=== PATIENT | male | born 1960 | race Caucasian/White ===

== ENCOUNTER 2016-12-24 22:31 | Emergency (ER) | payer OTHER, SELFPAY ==
[2016-12-24 22:55] LABS: BASOPHIL % 0.3 % (0.0-0.4); Eosinophil % 0.9 % (0.00-5.0); Granulocytes % 68.2 % (36.0-66.0); Lymphocytes % 25.2 % (24.0-44.0); Mean Cell Volume 93.6 fl (78-100); Mean Corpuscular Hemoglobin 31.3 pg (26-32); Mean Platelet Volume 10.4 fl (6-9.5); Monocytes % 5.4 % (0.0-12.0); Platelet Count 235 K/mm3 (150-450); Red Blood Count 4.85 M/mm3 (4.1-5.6); Red Cell Distribution Width 13.5 % (11.5-14.0)
--- NOTE | 2016-12-24 23:07 | ERPHSYRPT ---
- History of Present Illness Time Seen by Provider: 12/24/16 22:47 Source: patient Exam Limitations: no limitations Patient Subjective Stated Complaint: Pt sts approx 45 min ago onset lt sided chest pain radiating into lt arm with lt arm and lt facial numbness. Describes as annoying. Sts pain 3-4/10. Pt sts also feels short of breath. Denies cardiac hx, is a smoker. Sts pain worse with deep breathing lt side. Triage Nursing Assessment: Pt alert, oriented, answers all questions appropriately. Skin p/w/d, resps non-labored SPo2 97% room air. Lung sounds diminished left lower lobe. Otherwise clear. Bowel sounds present all quadrants. Physician History: ABOUT 45 MINUTES AGO PT STARTED WITH SHORTNESS OF AIR, LEFT ANTERIOR CHEST PAIN , DIZZINESS, DRAWING OF THE MOUTH TO THE LEFT AND NUMBNESS OF THE LEFT SIDE OF THE FACE AND LEFT FINGERS. Allergies/Adverse Reactions: No Known Drug Allergies Allergy (Unverified 12/24/16 22:39) Home Medications: Hydrocodone Bit/Acetaminophen [[place] 10-325 Tablet] 1 each PO Q4H 12/24/16 [ History] Hx Tetanus, Diphtheria Vaccination/Date Given: No Hx Influenza Vaccination/Date Given: Yes Hx Pneumococcal Vaccination/Date Given: No Immunizations Up to Date: No - Review of Systems Respiratory: Dyspnea Cardiac: Chest Pain Neurological: Dizziness, Sensory Changes (NUMBNESS OF THE LEFT FINGERS AND LEFT SIDE OF THE FACE), Other (DRAWING OF THE LEFT SIDE OF THE MOUTH) All Other Systems: Reviewed and Negative - Past Medical History Pertinent Past Medical History: Yes Other Medical History: CHRONIC PAIN HIP - LEFT HIP AND ANKLES - Past Surgical History Past Surgical History: Yes Gastrointestinal: Hernia Repair - Social History Smoking Status: Current every day smoker How long have you smoked: 30 years Exposure to second hand smoke: No Drug Use: none Patient Lives Alone: No - Nursing Vital Signs Nursing Vital Signs: Initial Vital Signs Temperature 97.7 F Temperature Source Oral Pulse Rate 65 Respiratory Rate 18 Blood Pressure [] 131/68 Pain Intensity 3 - Physical Exam General Appearance: alert Eye Exam: PERRL/EOMI Ears, Nose, Throat Exam: pharynx normal, dry mucous membranes Neck Exam: normal inspection Respiratory Exam: lungs clear Cardiovascular Exam: regular rate/rhythm, normal heart sounds Gastrointestinal/Abdomen Exam: soft, normal bowel sounds Back Exam: normal range of motion Extremity Exam: normal inspection, normal range of motion, No pedal edema Neurologic Exam: alert, cooperative, 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, normal mood/ affect, sensory deficit (PT HAS SENSATION OF THE LEFT FACIAL CHEEK AND LEFT FINGERS TO DEEP PRESSURE BUT STATES THE FINGERTIPS FEEL NUMB AND THE LEFT FACIAL CHEEK DOESN'T FEEL LIKE THE RIGHT FACIAL CHEEK.), No motor deficits Skin Exam: warm, dry SpO2 Interpretation: normal SpO2: 97 Oxygen Delivery: Room Air - Course Nursing assessment & vital signs reviewed: Yes EKG Interpreted by Me: RATE (70), Sinus Rhythm, NORMAL AXIS, NORMAL INTERVALS - Radiology Exams Chest X-ray Interpretation: Interpreted by me, No Pneumonia - CT Exams Head CT Interpretation: Tele-radiologist Report (NO ACUTE INTRACRANIAL ABNORMALITY.) Ordered Tests: Active Orders 24 hr Category Date Time Status EKG-ER Only STAT Care 12/24/16 22:48 Active CHEST 1 VIEW (PORTABLE) Stat Exams 12/24/16 22:48 Taken HEAD WITHOUT CONTRAST [CT] Stat Exams 12/24/16 22:49 Taken AMYLASE Stat Lab 12/24/16 22:51 Completed CBC W DIFF Stat Lab 12/24/16 22:51 Completed CMP Stat Lab 12/24/16 22:51 Completed LIPASE Stat Lab 12/24/16 22:51 Completed MAGNESIUM Stat Lab 12/24/16 22:51 Completed NT PRO BNP Stat Lab 12/24/16 22:51 Completed TROPONIN Q3H Lab 12/24/16 22:51 Completed TROPONIN Q3H Lab 12/25/16 02:00 Ordered TROPONIN Q3H Lab 12/25/16 05:00 Ordered TROPONIN Q3H Lab 12/25/16 08:00 Ordered TROPONIN Q3H Lab 12/25/16 11:00 Ordered UA Stat Lab 12/24/16 00:46 Completed Urine Triage Profile Stat Lab 12/24/16 00:46 Completed Medication Summary Discontinued Medications Generic Name Dose Route Start Last Admin Trade Name Freq PRN Reason Stop Dose Admin Sodium Chloride 1,000 mls @ 999 mls/hr 12/24/16 23:50 12/24/16 23:59 Sodium Chloride 0.9% 1000 Ml IV 12/25/16 00:50 999 mls/hr .Q1H1M STA Administration Sodium Chloride Confirm 12/24/16 23:56 Sodium Chloride 0.9% 1000 Ml Administered 12/24/16 23:57 Dose 1,000 mls @ ud .ROUTE .STK-MED ONE Lab/Rad Data: Laboratory Result Diagrams 12/24/16 22:51 12/24/16 22:51 Laboratory Results 12/24/16 12/24/16 12/24/16 Range/Units 22:51 22:51 22:51 WBC 12.0 H (4.0-10.5) K/mm3 RBC 4.85 (4.1-5.6) M/mm3 Hgb 15.2 (12.5-18.0) gm/dl Hct 45.4 (42-50) % MCV 93.6 (78-100) fl MCH 31.3 (26-32) pg MCHC 33.5 (32-36) g/dl RDW 13.5 (11.5-14.0) % Plt Count 235 (150-450) K/mm3 MPV 10.4 H (6-9.5) fl Gran % 68.2 H (36.0-66.0) % Lymphocytes % 25.2 (24.0-44.0) % Monocytes % 5.4 (0.0-12.0) % Eosinophils % 0.9 (0.00-5.0) % Basophils % 0.3 (0.0-0.4) % Basophils # 0.04 (0-0.4) Sodium 142 (136-145) mEq/L Potassium 3.6 (3.5-5.1) mEq/L Chloride 101 (98-107) mEq/L Carbon Dioxide 29.3 (21-32) mEq/L Anion Gap 15.2 H (5-15) MEQ/L BUN 25 H (9-20) mg/dL Creatinine 1.26 (0.55-1.30) mg/dl Estimated GFR > 60 ML/MIN Glucose 115 H (70-110) MG/DL Calcium 9.0 (8.5-10.1) mg/dL Magnesium 1.8 (1.8-2.4) mg/dL Total Bilirubin 0.5 (0.2-1.0) mg/dL AST 16 (15-37) U/L ALT 26 (12-78) U/L Alkaline Phosphatase 77 (46-116) U/L Troponin I < 0.017 (0.000-0.056) ng/ml NT-Pro-B Natriuret Pep < 5.0 (0-125) pg/ml Serum Total Protein 7.4 (6.4-8.2) gm/dL Albumin 4.0 (3.4-5.0) g/dL Amylase 54 (25-115) U/L Lipase 143 (73-393) U/L Ur Collection Type Urine Color (YELLOW) Urine Appearance (CLEAR) Urine pH (5-6) Ur Specific [place] (1.005-1.025) Urine Protein (Negative) Urine Glucose (UA) (NEGATIVE) mg/dL Urine Ketones (NEGATIVE) Urine Nitrite (NEGATIVE) Urine Bilirubin (NEGATIVE) Urine Urobilinogen (0-1) mg/dL Urine WBC (Auto) (NEGATIVE) Urine RBC (Auto) (0-5) Daniel/ul Urine Opiates Level (NEGATIVE) Ur Methadone (NEGATIVE) Urine Barbiturates (NEGATIVE) Ur Phencyclidine (PCP) (NEGATIVE) Urine Amphetamine (NEGATIVE) U Benzodiazepine Level (NEGATIVE) Urine Cocaine (NEGATIVE) Urine Marijuana (THC) (NEGATIVE) Specimen Received 12/24/16 12/24/16 Range/Units 00:46 00:46 WBC (4.0-10.5) K/mm3 RBC (4.1-5.6) M/mm3 Hgb (12.5-18.0) gm/dl Hct (42-50) % MCV (78-100) fl MCH (26-32) pg MCHC (32-36) g/dl RDW (11.5-14.0) % Plt Count (150-450) K/mm3 MPV (6-9.5) fl Gran % (36.0-66.0) % Lymphocytes % (24.0-44.0) % Monocytes % (0.0-12.0) % Eosinophils % (0.00-5.0) % Basophils % (0.0-0.4) % Basophils # (0-0.4) Sodium (136-145) mEq/L Potassium (3.5-5.1) mEq/L Chloride (98-107) mEq/L Carbon Dioxide (21-32) mEq/L Anion Gap (5-15) MEQ/L BUN (9-20) mg/dL Creatinine (0.55-1.30) mg/dl Estimated GFR ML/MIN Glucose (70-110) MG/DL Calcium (8.5-10.1) mg/dL Magnesium (1.8-2.4) mg/dL Total Bilirubin (0.2-1.0) mg/dL AST (15-37) U/L ALT (12-78) U/L Alkaline Phosphatase (46-116) U/L Troponin I (0.000-0.056) ng/ml NT-Pro-B Natriuret Pep (0-125) pg/ml Serum Total Protein (6.4-8.2) gm/dL Albumin (3.4-5.0) g/dL Amylase (25-115) U/L Lipase (73-393) U/L Ur Collection Type CLEAN CATCH Urine Color YELLOW (YELLOW) Urine Appearance CLEAR (CLEAR) Urine pH 7.5 (5-6) Ur Specific [place] 1.015 (1.005-1.025) Urine Protein NEGATIVE (Negative) Urine Glucose (UA) NEGATIVE (NEGATIVE) mg/dL Urine Ketones NEGATIVE (NEGATIVE) Urine Nitrite NEGATIVE (NEGATIVE) Urine Bilirubin NEGATIVE (NEGATIVE) Urine Urobilinogen 0.2 (0-1) mg/dL Urine WBC (Auto) NEGATIVE (NEGATIVE) Urine RBC (Auto) NEGATIVE (0-5) Daniel/ul Urine Opiates Level NEG. (NEGATIVE) Ur Methadone NEG. (NEGATIVE) Urine Barbiturates NEG. (NEGATIVE) Ur Phencyclidine (PCP) NEG. (NEGATIVE) Urine Amphetamine NEG. (NEGATIVE) U Benzodiazepine Level NEG. (NEGATIVE) Urine Cocaine NEG. (NEGATIVE) Urine Marijuana (THC) POS. (NEGATIVE) Specimen Received 12/25/1644 - Departure Time of Disposition: 01:12 Departure Disposition: Home Clinical Impression: MILD DEHYDRATION, DYSESTHESIA, CHEST PAIN Condition: Fair Critical Care Time: No Instructions: Chest Pain, Dehydration -- Adult Additional Instructions: FOLLOW UP WITH PRIVATE DOCTOR TOMORROW. DRINK MORE WATER.
[2016-12-24 23:18] LABS: ALKALINE PHOSPHATASE 77 U/L (46-116); ANION GAP 15.2 MEQ/L (5-15); BILIRUBIN,TOTAL 0.5 mg/dL (0.2-1.0); BLOOD UREA NITROGEN 25 mg/dL (9-20); CHLORIDE 101 mEq/L (98-107); Carbon Dioxide 29.3 mEq/L (21-32); Glucose 115 MG/DL (70-110); LIPASE 143 U/L (73-393); MAGNESIUM 1.8 mg/dL (1.8-2.4); Potassium 3.6 mEq/L (3.5-5.1); SGOT/AST 16 U/L (15-37); SGPT/ALT 26 U/L (12-78); SODIUM 142 mEq/L (136-145); Total Protein 7.4 gm/dL (6.4-8.2)
[2016-12-24] MEDS ORDERED: Sodium Chloride 0.9% 1000 ML 1,000 ML IV STA (23:50)
[2016-12-24] MEDS ORDERED: Sodium Chloride 0.9% 1000 ML 1,000 ML ONE (23:56)
[2016-12-25 01:09] LABS: COMPLETE URINE MICROSCOPIC? NO; Collection Type CLEAN CATCH; Ph 7.5 (5-6)
[2016-12-25 01:54] VITALS: BP 134/73; PULSE 99; O2SAT 99
--- NOTE | 2016-12-25 08:54 | XRAY ---
Indication: Left-sided numbness and weakness. Multiple contiguous axial images obtained through the head without contrast. Comparison: None Normal-appearing brain parenchyma, ventricles, and bony calvarium. Visualized paranasal sinuses and mastoid air cells are pneumatized and clear. Impression: Normal CT head without contrast exam. Comment: Preliminary interpretation was made by [facility]. No discrepancy. CTDI 69.79
--- NOTE | 2016-12-25 08:58 | XRAY ---
Indication: Short of breath. Comparison: January 08, 2012 Portable chest again hyperinflated with chronic lung markings and right apical calcified granuloma. No focal infiltrate, consolidation, or large effusion. Heart is not enlarged. Bony thorax intact. Impression: Stable nonacute chest with chronic features.
== END 2016-12-25 01:55 | disposition home or self-care (01) ==
LOC: ED 22:31
DX: E86.0 Dehydration (principal); R20.8 Other disturbances of skin sensation; R07.89 Other chest pain; R06.02 Shortness of breath; R42 Dizziness and giddiness; R20.0 Anesthesia of skin
CPT/HCPCS: 36000; 36415; 70450; 71010; 80053; 80307; 81002; 82150; 83690; 83735; 83880; 84484; 85025; 93005; 96360; 96361; 99283

== ENCOUNTER 2017-11-02 09:46 | Observation (INO) | payer OTHER ==
[2017-11-02] MEDS ORDERED: Sodium Chloride 0.9% 1000 ML 1,000 ML IV STA (09:47)
--- NOTE | 2017-11-02 09:53 | ERPHSYRPT ---
- History of Present Illness Time Seen by Provider: 11/02/17 09:49 Source: patient Exam Limitations: no limitations Physician History: 57-year-old white male arrives with complaint of a syncopal episode which occurred just prior to arrival. Patient states he was sitting in his truck when he suddenly passed out. Patient arrives diaphoretic does not have any chest pain shortness of breath he is not vomiting. Past medical history is remarkable for possible tia in past. chronic hip pain. Past surgical history positive for hernia repair. ] Social history positive for tobacco use. Timing/Duration: today Severity: moderate Modifying Factors: Improves With: nothing Associated Symptoms: diaphoresis, syncope, No nausea, No vomiting, No abdominal pain, No shortness of breath, No heartburn, No cough, No chills, No chest pain, No fever, No headaches, No loss of appetite, No malaise, No rash, No seizure, No weakness Allergies/Adverse Reactions: No Known Drug Allergies Allergy (Verified 11/02/17 09:54) Home Medications: Hydrocodone Bit/Acetaminophen [[place] 10-325 Tablet] 1 each PO Q4H 12/24/16 [ History] Alprazolam [Xanax] 1 mg TID 11/02/17 [History] Aspirin [Aspir-Low] 81 mg DAILY 11/02/17 [History] Ranitidine HCl [Zantac] 150 mg BID 11/02/17 [History] Hx Tetanus, Diphtheria Vaccination/Date Given: No Hx Influenza Vaccination/Date Given: Yes Hx Pneumococcal Vaccination/Date Given: No - Review of Systems Constitutional: Other (diaphoretic), No Fever, No Chills Eyes: No Symptoms Ears, Nose, & Throat: No Symptoms, No Ear Pain, No Ear Discharge, No Hearing Changes, No Tinnitus, No Nose Pain, No Nose Congestion, No Nose Discharge, No Sinus Drainage, No Epistaxis, No Mouth Pain, No Mouth Swelling, No Loose Teeth, No Throat Pain, No Throat Swelling, No Hoarse, No Painful Swallowing, No Snoring , No Stridor Respiratory: No Cough, No Dyspnea Cardiac: Syncope, No Chest Pain, No Edema Abdominal/Gastrointestinal: No Abdominal Pain, No Nausea, No Vomiting, No Diarrhea Genitourinary Symptoms: No Dysuria Musculoskeletal: No Back Pain, No Neck Pain Skin: Other (diaphoresis), No Rash Neurological: No Dizziness, No Focal Weakness, No Sensory Changes Psychological: No Symptoms Endocrine: No Symptoms All Other Systems: Reviewed and Negative - Past Medical History Pertinent Past Medical History: Yes Other Medical History: CHRONIC PAIN HIP - LEFT HIP AND ANKLES - Past Surgical History Past Surgical History: Yes Gastrointestinal: Hernia Repair - Social History Smoking Status: Current every day smoker How long have you smoked: 30 years Exposure to second hand smoke: No Drug Use: none Patient Lives Alone: No - Nursing Vital Signs Nursing Vital Signs: Initial Vital Signs Temperature 97.0 F 11/02/17 09:47 Pulse Rate 80 11/02/17 09:47 Respiratory Rate 18 11/02/17 09:47 Blood Pressure 112/62 11/02/17 09:47 O2 Sat by Pulse Oximetry 96 11/02/17 09:47 Pain Scale Pain Intensity 0 - Physical Exam General Appearance: mild distress, alert, other (well-developed well-nourished white male diaphoretic) Eye Exam: PERRL/EOMI, eyes nml inspection Ears, Nose, Throat Exam: normal ENT inspection, TMs normal, pharynx normal, moist mucous membranes Neck Exam: normal inspection, non-tender, supple, full range of motion Respiratory Exam: normal breath sounds, lungs clear, No respiratory distress Cardiovascular Exam: regular rate/rhythm, normal heart sounds, normal peripheral pulses Gastrointestinal/Abdomen Exam: soft, normal bowel sounds, No tenderness, No mass Back Exam: normal inspection, normal range of motion, No CVA tenderness, No vertebral tenderness Extremity Exam: normal inspection, normal range of motion, pelvis stable Neurologic Exam: alert, oriented x 3, cooperative, normal mood/affect, nml cerebellar function, nml station & gait, sensation nml, No motor deficits Skin Exam: normal color, warm, dry, No rash Lymphatic Exam: No adenopathy (no) SpO2 Interpretation: normal (96%) - Course Nursing assessment & vital signs reviewed: Yes EKG Interpreted by Me: RATE (80 bpm), Sinus Rhythm, NORMAL AXIS, Other (EKG: Sinus rhythm 80 bpm normal axis no acute ST or T wave changes noted) Rhythm Strip: Rate ( 100) - Radiology Exams Chest X-ray Interpretation: Discussed w/ radiologist (chest x-ray: Stable nonacute hyperinflated chest with chronic features) - CT Exams Head CT Interpretation: Negative, Other (CT head: Stable normal CT head without contrast) Chest CT Interpretation: Discussed w/radiologist (CTA chest: Impression 1. Negative pulmonary embolus 2. Extensive bullous emphysema, scattered fibrosis/scarring, and evidence for old granulomatous disease. 3. No acute cardiopulmonary abnormities. 4. Incidental fatty liver and splenomegaly. 5. New indeterminate 1.5 cm right adrenal gland mass) Ordered Tests: Active Orders 24 hr Category Date Time Status Accucheck STAT Care 11/02/17 09:47 Active EKG-ER Only STAT Care 11/02/17 09:47 Active IV Insertion STAT Care 11/02/17 09:47 Active Orthostatic Vital Signs STAT Care 11/02/17 09:47 Active Pulse Oximetry (ED) STAT Care 11/02/17 09:47 Active CHEST 1 VIEW (PORTABLE) Stat Exams 11/02/17 09:49 Completed CHEST WITH CONTRAST [CT] Stat Exams 11/02/17 11:23 Completed HEAD WITHOUT CONTRAST [CT] Stat Exams 11/02/17 09:55 Completed CBC W DIFF Stat Lab 11/02/17 10:03 Completed CMP Stat Lab 11/02/17 10:03 Completed D-DIMER QUANTITATION Stat Lab 11/02/17 10:03 Completed ETHYL ALCOHOL Stat Lab 11/02/17 10:03 Completed TROPONIN Q3H Lab 11/02/17 10:03 Completed TROPONIN Q3H Lab 11/02/17 13:30 Received TROPONIN Q3H Lab 11/02/17 16:00 Ordered TROPONIN Q3H Lab 11/02/17 19:00 Ordered TROPONIN Q3H Lab 11/02/17 22:00 Ordered UA W/RFX UR CULTURE Stat Lab 11/02/17 09:47 Completed Urine Triage Profile Stat Lab 11/02/17 10:31 Completed VENOUS BLOOD GAS Stat Lab 11/02/17 09:50 Completed Transfer Order Routine Transfer 11/02/17 Ordered Medication Summary Discontinued Medications Generic Name Dose Route Start Last Admin Trade Name Freq PRN Reason Stop Dose Admin Sodium Chloride 1,000 mls @ 999 mls/hr 11/02/17 09:47 11/02/17 10:15 Sodium Chloride 0.9% 1000 Ml IV 11/02/17 10:47 999 mls/hr .Q1H1M STA Administration Sodium Chloride Confirm 11/02/17 10:05 Sodium Chloride 0.9% 1000 Ml Administered 11/02/17 10:06 Dose 1,000 mls @ ud .ROUTE .STK-MED ONE Lab/Rad Data: Laboratory Result Diagrams 11/02/17 10:03 11/02/17 10:03 Laboratory Results 11/02/17 11/02/17 11/02/17 Range/Units 10:31 10:03 10:03 WBC (4.0-10.5) K/mm3 RBC (4.1-5.6) M/mm3 Hgb (12.5-18.0) gm/dl Hct (42-50) % MCV (78-100) fl MCH (26-32) pg MCHC (32-36) g/dl RDW (11.5-14.0) % Plt Count (150-450) K/mm3 MPV (6-9.5) fl Gran % (36.0-66.0) % Lymphocytes % (24.0-44.0) % Monocytes % (0.0-12.0) % Eosinophils % (0.00-5.0) % Basophils % (0.0-0.4) % Basophils # (0-0.4) D-Dimer 577.95 H* (0-500) ng/mL VBG pH (7.32-7.42) VBG pCO2 at Pat Temp (42-55) mm/Hg VBG pO2 at Pat Temp (25-40) mm/Hg VBG HCO3 (22-28) meq/L VBG O2 Sat (Janelle) (95-100) VBG Base Excess (-2.0-2.0) VBG Hemoglobin VBG Carboxyhemoglobin (0.0-6.9) % T HGB POC Potassium (3.5-5.1) Sodium (136-145) mEq/L Potassium (3.5-5.1) mEq/L Chloride (98-107) mEq/L Carbon Dioxide (21-32) mEq/L Anion Gap (5-15) MEQ/L BUN (9-20) mg/dL Creatinine (0.55-1.30) mg/dl Estimated GFR ML/MIN Glucose (70-110) MG/DL Calcium (8.5-10.1) mg/dL Total Bilirubin (0.2-1.0) mg/dL AST (15-37) U/L ALT (12-78) U/L Alkaline Phosphatase (46-116) U/L Troponin I < 0.017 (0.000-0.056) ng/ml Serum Total Protein (6.4-8.2) gm/dL Albumin (3.4-5.0) g/dL Ur Collection Type Urine Color (YELLOW) Urine Appearance (CLEAR) Urine pH (5-6) Ur Specific [place] (1.005-1.025) Urine Protein (Negative) Urine Ketones (NEGATIVE) Urine Blood (0-5) Daniel/ul Urine Nitrite (NEGATIVE) Urine Bilirubin (NEGATIVE) Urine Urobilinogen (0-1) mg/dL Ur Leukocyte Esterase (NEGATIVE) Urine Culture Reflexed (NO) Urine Glucose (NEGATIVE) mg/dL Urine Opiates Level POS. (NEGATIVE) Ur Methadone NEG. (NEGATIVE) Urine Barbiturates NEG. (NEGATIVE) Ur Phencyclidine (PCP) NEG. (NEGATIVE) Urine Amphetamine NEG. (NEGATIVE) U Benzodiazepine Level POS. (NEGATIVE) Urine Cocaine NEG. (NEGATIVE) Urine Marijuana (THC) POS. (NEGATIVE) Ethyl Alcohol (0.00-0.01) % Specimen Received 11/02/17 11/02/17 11/02/17 Range/Units 10:03 10:03 09:50 WBC 9.3 (4.0-10.5) K/mm3 RBC 5.21 (4.1-5.6) M/mm3 Hgb 16.2 (12.5-18.0) gm/dl Hct 48.3 (42-50) % MCV 92.7 (78-100) fl MCH 31.1 (26-32) pg MCHC 33.5 (32-36) g/dl RDW 13.6 (11.5-14.0) % Plt Count 216 (150-450) K/mm3 MPV 10.7 H (6-9.5) fl Gran % 47.7 (36.0-66.0) % Lymphocytes % 35.4 (24.0-44.0) % Monocytes % 14.9 H (0.0-12.0) % Eosinophils % 1.4 (0.00-5.0) % Basophils % 0.6 (0.0-0.4) % Basophils # 0.06 (0-0.4) D-Dimer (0-500) ng/mL VBG pH 7.39 (7.32-7.42) VBG pCO2 at Pat Temp 36 L (42-55) mm/Hg VBG pO2 at Pat Temp 23 L (25-40) mm/Hg VBG HCO3 21.8 L (22-28) meq/L VBG O2 Sat (Janelle) 57.1 L (95-100) VBG Base Excess -2.5 L (-2.0-2.0) VBG Hemoglobin 16.9 VBG Carboxyhemoglobin 7.8 H* (0.0-6.9) % T HGB POC Potassium 4.0 (3.5-5.1) Sodium 137 (136-145) mEq/L Potassium 4.1 (3.5-5.1) mEq/L Chloride 102 (98-107) mEq/L Carbon Dioxide 20.5 L (21-32) mEq/L Anion Gap 18.6 H (5-15) MEQ/L BUN 21 H (9-20) mg/dL Creatinine 1.19 (0.55-1.30) mg/dl Estimated GFR > 60 ML/MIN Glucose 115 H (70-110) MG/DL Calcium 9.5 (8.5-10.1) mg/dL Total Bilirubin 0.60 (0.2-1.0) mg/dL AST 17 (15-37) U/L ALT 15 (12-78) U/L Alkaline Phosphatase 75 (46-116) U/L Troponin I (0.000-0.056) ng/ml Serum Total Protein 7.5 (6.4-8.2) gm/dL Albumin 4.0 (3.4-5.0) g/dL Ur Collection Type Urine Color (YELLOW) Urine Appearance (CLEAR) Urine pH (5-6) Ur Specific [place] (1.005-1.025) Urine Protein (Negative) Urine Ketones (NEGATIVE) Urine Blood (0-5) Daniel/ul Urine Nitrite (NEGATIVE) Urine Bilirubin (NEGATIVE) Urine Urobilinogen (0-1) mg/dL Ur Leukocyte Esterase (NEGATIVE) Urine Culture Reflexed (NO) Urine Glucose (NEGATIVE) mg/dL Urine Opiates Level (NEGATIVE) Ur Methadone (NEGATIVE) Urine Barbiturates (NEGATIVE) Ur Phencyclidine (PCP) (NEGATIVE) Urine Amphetamine (NEGATIVE) U Benzodiazepine Level (NEGATIVE) Urine Cocaine (NEGATIVE) Urine Marijuana (THC) (NEGATIVE) Ethyl Alcohol < 0.010 (0.00-0.01) % Specimen Received 11/02/17 Range/Units 09:47 WBC (4.0-10.5) K/mm3 RBC (4.1-5.6) M/mm3 Hgb (12.5-18.0) gm/dl Hct (42-50) % MCV (78-100) fl MCH (26-32) pg MCHC (32-36) g/dl RDW (11.5-14.0) % Plt Count (150-450) K/mm3 MPV (6-9.5) fl Gran % (36.0-66.0) % Lymphocytes % (24.0-44.0) % Monocytes % (0.0-12.0) % Eosinophils % (0.00-5.0) % Basophils % (0.0-0.4) % Basophils # (0-0.4) D-Dimer (0-500) ng/mL VBG pH (7.32-7.42) VBG pCO2 at Pat Temp (42-55) mm/Hg VBG pO2 at Pat Temp (25-40) mm/Hg VBG HCO3 (22-28) meq/L VBG O2 Sat (Janelle) (95-100) VBG Base Excess (-2.0-2.0) VBG Hemoglobin VBG Carboxyhemoglobin (0.0-6.9) % T HGB POC Potassium (3.5-5.1) Sodium (136-145) mEq/L Potassium (3.5-5.1) mEq/L Chloride (98-107) mEq/L Carbon Dioxide (21-32) mEq/L Anion Gap (5-15) MEQ/L BUN (9-20) mg/dL Creatinine (0.55-1.30) mg/dl Estimated GFR ML/MIN Glucose (70-110) MG/DL Calcium (8.5-10.1) mg/dL Total Bilirubin (0.2-1.0) mg/dL AST (15-37) U/L ALT (12-78) U/L Alkaline Phosphatase (46-116) U/L Troponin I (0.000-0.056) ng/ml Serum Total Protein (6.4-8.2) gm/dL Albumin (3.4-5.0) g/dL Ur Collection Type CCMS Urine Color YELLOW (YELLOW) Urine Appearance CLEAR (CLEAR) Urine pH 5.0 (5-6) Ur Specific [place] 1.020 (1.005-1.025) Urine Protein NEGATIVE (Negative) Urine Ketones NEGATIVE (NEGATIVE) Urine Blood NEGATIVE (0-5) Daniel/ul Urine Nitrite NEGATIVE (NEGATIVE) Urine Bilirubin NEGATIVE (NEGATIVE) Urine Urobilinogen NORMAL (0-1) mg/dL Ur Leukocyte Esterase NEGATIVE (NEGATIVE) Urine Culture Reflexed NO (NO) Urine Glucose NEGATIVE (NEGATIVE) mg/dL Urine Opiates Level (NEGATIVE) Ur Methadone (NEGATIVE) Urine Barbiturates (NEGATIVE) Ur Phencyclidine (PCP) (NEGATIVE) Urine Amphetamine (NEGATIVE) U Benzodiazepine Level (NEGATIVE) Urine Cocaine (NEGATIVE) Urine Marijuana (THC) (NEGATIVE) Ethyl Alcohol (0.00-0.01) % Specimen Received 11/02 1030 - Progress Progress: improved Progress Note: 11/02/17 11:46 57-year-old white male who arrived here diaphoretic after passing out in his car he was apparently had been passed out for about 10 minutes he states there are lots of fumes in the vehicle. Patient did not have any chest pain patient is looking markedly improved after receiving 1 L of normal saline also receiving 100% oxygen patient did have a carbon monoxide of 7.8 however he smokes. Unfortunately the patient's d-dimer is elevated therefore CT of the chest was ordered to rule out PE. 11/02/17 13:12 Patient's CTA chest negative for PE positive bullolus emphysema. Case discussed with Dr. Smith., Will place patient on observation telemetry provide IV normal saline obtain serial enzymes. 11/02/17 13:15 Patient now is looking quite well and in no acute distress he has received an hour of oxygen and 1 liter of normal saline 11/02/17 13:41 - Departure Time of Disposition: 13:14 Departure Disposition: Observation (Dr Smith for Dr Erickson) Clinical Impression: increase carbon monoxide level Syncope Qualifiers: Syncope type: unspecified Qualified Code(s): R55 - Syncope and collapse Condition: Fair Critical Care Time: No
[2017-11-02 09:54] LABS: VBG BASE EXCESS -2.5 (-2.0-2.0); VBG HCO3- 21.8 meq/L (22-28); VBG HEMOGLOBIN 16.9; VBG O2 SATURATION 57.1 (95-100); VBG pH 7.39 (7.32-7.42)
[2017-11-02 09:55] LABS: VBG CARBOXYHEMOGLOBIN 7.8 % T HGB (0.0-6.9)
[2017-11-02] MEDS ORDERED: Sodium Chloride 0.9% 1000 ML 1,000 ML ONE (10:05)
[2017-11-02 10:09] LABS: BASOPHIL % 0.6 % (0.0-0.4); Eosinophil % 1.4 % (0.00-5.0); Granulocytes % 47.7 % (36.0-66.0); Lymphocytes % 35.4 % (24.0-44.0); Mean Cell Volume 92.7 fl (78-100); Mean Corpuscular Hemoglobin 31.1 pg (26-32); Mean Platelet Volume 10.7 fl (6-9.5); Monocytes % 14.9 % (0.0-12.0); Platelet Count 216 K/mm3 (150-450); Red Blood Count 5.21 M/mm3 (4.1-5.6); Red Cell Distribution Width 13.6 % (11.5-14.0); White Blood Count 9.3 K/mm3 (4.0-10.5)
--- NOTE | 2017-11-02 10:19 | XRAY ---
Indication: Syncope and diaphoresis. Comparison: December 31, 2011 and December 24, 2016. Portable chest unchanged again hyperinflated with scattered fibrosis/scarring and small biapical nodularities. No focal infiltrate, consolidation, or large effusion. Heart is not enlarged. Vascularity normal. Bony thorax intact again with mild degenerative changes. Impression: Stable nonacute hyperinflated chest with chronic features.
--- NOTE | 2017-11-02 10:23 | XRAY ---
Indication: Syncopal episode. Multiple contiguous axial images obtained through the head without contrast. Comparison: December 24, 2016. Again normal appearing brain parenchyma, ventricles, and bony calvarium. Visualized paranasal sinuses and mastoid air cells are clear. Impression: Stable normal CT head without contrast exam. CT DI 51.47
[2017-11-02 10:34] LABS: ALKALINE PHOSPHATASE 75 U/L (46-116); ANION GAP 18.6 MEQ/L (5-15); BLOOD UREA NITROGEN 21 mg/dL (9-20); CHLORIDE 102 mEq/L (98-107); Carbon Dioxide 20.5 mEq/L (21-32); ETHYL ALCOHOL < 0.010 % (0.00-0.01); Glucose 115 MG/DL (70-110); Potassium 4.1 mEq/L (3.5-5.1); SGOT/AST 17 U/L (15-37); SGPT/ALT 15 U/L (12-78); SODIUM 137 mEq/L (136-145); Total Protein 7.5 gm/dL (6.4-8.2)
[2017-11-02 10:41] LABS: ADD URINE CULTURE? NO (NO); Bilirubin NEGATIVE (NEGATIVE); Blood NEGATIVE Ery/ul (0-5); COMPLETE URINE MICROSCOPIC? NO; Collection Type CCMS; Glucose NEGATIVE (NEGATIVE); Leukocyte Esterase NEGATIVE (NEGATIVE)
--- NOTE | 2017-11-02 12:32 | XRAY ---
Indication: Short of breath. Syncope. Elevated d-dimer. History left leg DVT. Multiple contiguous axial images obtained through the chest using 80 cc Isovue 370 contrast and PE protocol. Comparison: Conventional CT chest with contrast exam July 06, 2006. There is satisfactory opacification of the pulmonary arteries to include the lobar and segmental branches. No filling defect or pulmonary embolus. Heart is not enlarged. Aorta is normal in course and caliber. Again a few tiny mediastinal calcified nodes. No pathologic mediastinal/hilar lymphadenopathy. Examination of the lung parenchyma again demonstrates extensive bullous emphysema again greatest in both upper lobes. Also stable bilateral upper lobe fibrosis/scarring. Stable tiny right upper lobe calcified granulomas with new calcified granulomas in the left upper and inferior right upper lobes. Minimal bilateral dependent atelectasis. No infiltrate, consolidation, or effusion. Bony thorax intact with minimal degenerative changes throughout the spine. Limited upper abdomen again demonstrates mild fatty liver and 14.5 cm splenomegaly. New 1.5 cm right adrenal gland noncalcified mass. Impression: 1. Negative pulmonary embolus. 2. Again extensive bullous emphysema, scattered fibrosis/scarring, and evidence for old granulomatous disease. 3. No acute cardiopulmonary abnormalities. 4. Incidental fatty liver and splenomegaly. 5. New indeterminate 1.5 cm right adrenal gland mass. CT DI 18.99
[2017-11-02] MEDS ORDERED: DUONEB 0.5-3 MG/3 ml Neb IH PRN (13:44)
[2017-11-02] MEDS ORDERED: Sodium Chloride 0.9% 10 ML FLUSH Syringe IV PRN (14:22)
[2017-11-02] MEDS ORDERED: Norco 10/325 MG Tablet PO PRN (15:00)
[2017-11-02] MEDS: XANAX 1 MG PO SCH ×2 (15:52→22:17)
--- NOTE | 2017-11-02 16:34 | PCM.HP ---
History of Present Illness - Chief Complaint Chief Complaint: syncope History of Present Illness: is a 57 year old male patient of Dr Erickson who presented to the emergency department after a syncopal episode. His son was driving in a truck that has an exhaust leak, he started feeling dizzy, lightheaded and broke out in a sweat per his son and the patient. He lost consciousness while he was in route to the hospital, shortly after arrival he started feeling better. Was diaphoretic on arrival to the ER, thinks he had a TIA in the past but was seen and released in the ER and had nor further workup. He does take a baby aspirin every day. - Review of Systems Constitutional: No Fever, No Chills Respiratory: No Cough, No Short Of Breath Cardiac: Syncope, No Chest Pain, No Edema Abdominal/Gastrointestinal: No Abdominal Pain, No Nausea, No Vomiting, No Diarrhea Skin: No Rash Neurological: No Dizziness, No Focal Weakness, No Sensory Changes All Other Systems: Reviewed and Negative Medications & Allergies Home Medications: Home Medication List Hydrocodone Bit/Acetaminophen [[place] 10-325 Tablet] 1 each PO Q4H 12/24/16 [ History Confirmed 11/02/17] Alprazolam [Xanax] 1 mg TID 11/02/17 [History Confirmed 11/02/17] Aspirin [Aspir-Low] 81 mg DAILY 11/02/17 [History Confirmed 11/02/17] Ranitidine HCl [Zantac] 150 mg BID 11/02/17 [History Confirmed 11/02/17] Allergies/Adverse Reactions: Allergies Allergy/AdvReac Type Severity Reaction Status Date / Time No Known Drug Allergies Allergy Verified 11/02/17 09:54 - Past Medical History Past Medical History: Yes Neurological History: TIA ENT History: Cataracts Cardiac History: No Pertinent History Respiratory History: Pneumonia Endocrine Medical History: No Pertinent History Musculoskelatal History: Arthritis GI Medical History: Hernia History: Other Pyscho-Social History: Anxiety Male Reproductive Disorders: Prostate Problems Comment: CHRONIC PAIN HIP - LEFT HIP AND ANKLES. MASS ON KIDNEYS - Past Surgical History Past Surgical History: Yes Neuro Surgical History: No Pertinent History Cardiac History: No Pertinent History Respiratory Surgery: No Pertinent History GI Surgical History: Hernia Repair Genitourinary Surgical Hx: No Pertinent History Musculskeletal Surgical Hx: No Pertinent History Male Surgical History: No Pertinent History - Social History Smoking Status: Current every day smoker How long have you smoked: 30 years Exposure to second hand smoke: No Alcohol: Daily Drug Use: marijuana - Physical Exam Vital Signs: Vital Signs - 24 hr Temp Pulse Resp BP Pulse Ox 11/02/17 16:00 97.6 F 56 L 16 158/72 95 11/02/17 14:54 69 18 96 11/02/17 13:50 97.5 F 63 18 134/71 93 L 11/02/17 13:48 97.5 F 53 L 20 99/63 94 L 11/02/17 13:46 53 L 20 99/63 94 L 11/02/17 13:40 97.5 F 63 18 134/71 93 L 11/02/17 13:39 97.5 F 63 18 134/71 93 L 11/02/17 12:52 54 L 24 100/67 96 11/02/17 12:05 58 L 18 119/70 97 11/02/17 10:50 62 18 131/74 97 11/02/17 10:30 75 16 119/78 97 11/02/17 09:57 96 11/02/17 09:47 97.0 F 80 18 112/62 96 Oxygen-Last 24 hours O2 Percentage 100% O2 Percentage 3 Liters = 32% General Appearance: no apparent distress, alert Neurologic Exam: alert, oriented x 3, cooperative, normal mood/affect, nml cerebellar function, nml station & gait, sensation nml, No motor deficits Eye Exam: PERRL/EOMI, eyes nml inspection Neck Exam: normal inspection, non-tender, supple, full range of motion Respiratory Exam: normal breath sounds, lungs clear, No respiratory distress Cardiovascular Exam: regular rate/rhythm, normal heart sounds, normal peripheral pulses Gastrointestinal/Abdomen Exam: soft, normal bowel sounds, No tenderness, No mass Extremity Exam: normal inspection, normal range of motion, pelvis stable Skin Exam: normal color, warm, dry, No rash Results - Radiology Impressions Radiology Exams & Impressions: Radiology Procedures Category Date Time Status CAROTID BILATERAL [US] Urgent Exams 11/02/17 Ordered ECHO W/2D AND DOPPLER [US] Routine Exams 11/02/17 Ordered - Other Procedures and Tests Respiratory Therapy 11/02/17 16:28 EEG 41-60 Minutes (Normal) ONCE Assessment/Plan (1) Syncope Current Visit: Yes Status: Acute Qualifiers: Syncope type: unspecified Qualified Code(s): R55 - Syncope and collapse Assessment & Plan: unable to have MRI, has a piece of metal in right eye for years according to patient. will get carotid doppler, echo and EEG to further evaluate. also ordered fasting lipid panel for am. will likely need stress test as outpatient if workup negative. would include seizure, TIA/CVA and cardiac syncope all as differential diagnoses. will r/o ND with serial troponins and keep on telemetry tonight. continue 81mg asa, CT head negative in ER. carboxyhemoglobin mildly elevated, explained by tobacco use. Code(s): R55 - SYNCOPE AND COLLAPSE
[2017-11-02] MEDS ORDERED: Pepcid 20 MG PO SCH (22:00)
[2017-11-02] MEDS ORDERED: Sodium Chloride 0.9% 10 ML FLUSH Syringe IV SCH (22:00)
[2017-11-03 05:58] LABS: BASOPHIL % 0.5 % (0.0-0.4); Eosinophil % 2.7 % (0.00-5.0); Granulocytes % 51.7 % (36.0-66.0); Lymphocytes % 31.6 % (24.0-44.0); Mean Corpuscular Hemoglobin 30.8 pg (26-32); Mean Platelet Volume 10.8 fl (6-9.5); Monocytes % 13.5 % (0.0-12.0); Platelet Count 182 K/mm3 (150-450); Red Blood Count 4.67 M/mm3 (4.1-5.6); Red Cell Distribution Width 13.7 % (11.5-14.0); White Blood Count 6.2 K/mm3 (4.0-10.5)
[2017-11-03 06:37] LABS: ALBUMIN 3.5 g/dL (3.4-5.0); ALKALINE PHOSPHATASE 62 U/L (46-116); BLOOD UREA NITROGEN 21 mg/dL (9-20); CHLORIDE 106 mEq/L (98-107); Carbon Dioxide 23.6 mEq/L (21-32); Glucose 102 MG/DL (70-110); Potassium 4.4 mEq/L (3.5-5.1); SGOT/AST 17 U/L (15-37); SGPT/ALT 27 U/L (12-78); SODIUM 138 mEq/L (136-145); Total Protein 6.4 gm/dL (6.4-8.2)
[2017-11-03 07:30] VITALS: BP 118/57; PULSE 58; O2SAT 91
--- NOTE | 2017-11-03 08:42 | XRAY ---
Indication: TIA. Two-dimensional sonogram and color Doppler imaging of the carotid arteries of the neck performed. Comparison: January 03, 2017. Examination of the right carotid circulation again negative for focal arteriosclerotic plaquing, critical stenosis, or obstruction. PSV of the CCA is 88 cm/s. PSV of the ICA is 45 cm/s. ICA/CCA ratio is 0.5. Normal antegrade vertebral artery flow. Examination of the left carotid circulation remains widely patent. PSV of the CCA is 90 cm/s. PSV of the ICA is 52 cm/s. ICA/CCA ratio is 0.6. Normal antegrade vertebral artery flow. Impression: Stable bilaterally patent carotid arteries of the neck. Velocity measurements and ratios remain negative for hemodynamically significant flow-limiting stenosis.
--- NOTE | 2017-11-03 09:16 | PCM.DS ---
Discharge Summary Date of Admission: 11/02/17 13:34 Admitting Physician: SABIHA ERICKSON Primary Care Provider: SABIHA ERICKSON Allergies Allergies No Known Drug Allergies Allergy (Verified 11/02/17 09:54) Hospital Summary - Hospital Course Hospital Course: patient was admitted for a syncopal episode, he is convinced it is from riding in his truck with poor exhaust and leak etc. he has felt normally since admission, has no chest pain, no rhythm problems or other concerns. carotid dopplers are normal, echo is pending. - Vitals & Intake/Output Vital Signs: Vital Signs Temperature 98.8 F 11/03/17 07:29 Pulse Rate 58 L 11/03/17 07:29 Respiratory Rate 16 11/03/17 07:29 Blood Pressure 118/57 11/03/17 07:29 O2 Sat by Pulse Oximetry 91 L 11/03/17 07:29 Oxygen-Last Documented O2 Percentage 100% Intake & Output: Intake & Output 10/31/17 11/01/17 11/02/17 11/03/17 11:59 11:59 11:59 11:59 Intake Total 1440 Output Total 1400 Balance 40 Weight 87.906 kg - Lab Result Diagrams: 11/03/17 05:35 11/03/17 05:35 Lab Results-Last 24 Hrs: Lab Results-Last 24 Hours 11/02/17 11/02/17 11/02/17 Range/Units 16:00 19:08 22:03 WBC (4.0-10.5) K/mm3 RBC (4.1-5.6) M/mm3 Hgb (12.5-18.0) gm/dl Hct (42-50) % MCV (78-100) fl MCH (26-32) pg MCHC (32-36) g/dl RDW (11.5-14.0) % Plt Count (150-450) K/mm3 MPV (6-9.5) fl Gran % (36.0-66.0) % Lymphocytes % (24.0-44.0) % Monocytes % (0.0-12.0) % Eosinophils % (0.00-5.0) % Basophils % (0.0-0.4) % Basophils # (0-0.4) Sodium (136-145) mEq/L Potassium (3.5-5.1) mEq/L Chloride (98-107) mEq/L Carbon Dioxide (21-32) mEq/L Anion Gap (5-15) MEQ/L BUN (9-20) mg/dL Creatinine (0.55-1.30) mg/dl Estimated GFR ML/MIN Glucose (70-110) MG/DL Calcium (8.5-10.1) mg/dL Total Bilirubin (0.2-1.0) mg/dL AST (15-37) U/L ALT (12-78) U/L Alkaline Phosphatase (46-116) U/L Troponin I < 0.017 < 0.017 < 0.017 (0.000-0.056) ng/ml Serum Total Protein (6.4-8.2) gm/dL Albumin (3.4-5.0) g/dL Triglycerides (30-200) mg/dL Cholesterol (100-200) mg/dL LDL Cholesterol (5-99) mg/dL HDL Cholesterol (35-60) mg/dL Heart Disease Risk Ratio 11/03/17 11/03/17 11/03/17 Range/Units 05:35 05:35 05:35 WBC 6.2 (4.0-10.5) K/mm3 RBC 4.67 (4.1-5.6) M/mm3 Hgb 14.4 (12.5-18.0) gm/dl Hct 43.9 (42-50) % MCV 94.0 (78-100) fl MCH 30.8 (26-32) pg MCHC 32.8 (32-36) g/dl RDW 13.7 (11.5-14.0) % Plt Count 182 (150-450) K/mm3 MPV 10.8 H (6-9.5) fl Gran % 51.7 (36.0-66.0) % Lymphocytes % 31.6 (24.0-44.0) % Monocytes % 13.5 H (0.0-12.0) % Eosinophils % 2.7 (0.00-5.0) % Basophils % 0.5 (0.0-0.4) % Basophils # 0.03 (0-0.4) Sodium 138 (136-145) mEq/L Potassium 4.4 (3.5-5.1) mEq/L Chloride 106 (98-107) mEq/L Carbon Dioxide 23.6 (21-32) mEq/L Anion Gap 13.0 (5-15) MEQ/L BUN 21 H (9-20) mg/dL Creatinine 0.98 (0.55-1.30) mg/dl Estimated GFR > 60 ML/MIN Glucose 102 (70-110) MG/DL Calcium 8.5 (8.5-10.1) mg/dL Total Bilirubin 0.40 (0.2-1.0) mg/dL AST 17 (15-37) U/L ALT 27 (12-78) U/L Alkaline Phosphatase 62 (46-116) U/L Troponin I (0.000-0.056) ng/ml Serum Total Protein 6.4 (6.4-8.2) gm/dL Albumin 3.5 (3.4-5.0) g/dL Triglycerides 116 (30-200) mg/dL Cholesterol 175 (100-200) mg/dL LDL Cholesterol 110 H (5-99) mg/dL HDL Cholesterol 35 (35-60) mg/dL Heart Disease Risk Ratio 5.0 - Radiology Exams Ordered Rad Exams-Entire Visit: Radiology Procedures Category Date Time Status CAROTID BILATERAL [US] Urgent Exams 11/03/17 Completed ECHO W/2D AND DOPPLER [US] Routine Exams 11/03/17 Taken - Procedures and Test Procedures and Tests throughout Hospitalization: Therapy Orders & Screens 11/02/17 14:02 Smoking Cessation Education Comment: Diagnosis: syncope Smoking Status: Current every day smoker How long have you smoked: 30 years Have you smoked in the past 12 months: Yes Do you dip or chew tobacco: No 11/02/17 16:28 EEG 41-60 Minutes (Normal) ONCE Comment: Reason For Exam: Diagnosis: syncope Discharge Exam General Appearance: no apparent distress, alert Skin Exam: normal color, warm, dry Respiratory Exam: normal breath sounds, lungs clear, No respiratory distress Cardiovascular Exam: regular rate/rhythm, normal heart sounds Gastrointestinal/Abdomen Exam: soft, No tenderness, No mass Extremity Exam: normal inspection, normal range of motion Final Diagnosis/Problem List - Final Discharge Diagnosis/Problem (1) Syncope Current Visit: Yes Status: Acute Assessment & Plan: patient had negative carotid dopplers, echo is pending. patient refuses any further testing and insists that he go home today. will f/u with Dr Erickson in office. I advised he return if any further episodes or new symptoms. - Discharge Disposition: Home, Self-Care Condition: Good Prescriptions: New Hydrocodone/APAP 10/325 mg [[place] 10/325 MG Tablet] 1 tab PO Q4H PRN PRN tablet MDD 6 PRN Reason: Pain Alprazolam 1 mg [Xanax 1 mg] 1 mg PO TID tablet Continue Aspirin [Aspir-Low] 81 mg DAILY Ranitidine HCl [Zantac] 150 mg BID Discontinued Hydrocodone Bit/Acetaminophen [[place] 10-325 Tablet] 1 each PO Q4H Alprazolam [Xanax] 1 mg TID Instructions: Fainting Follow up with: SABIHA ERICKSON [Primary Care Provider] - Forms: Discharge Instructions, Patient Portal Information
[2017-11-03] MEDS ORDERED: ECOTRIN 81 MG PO SCH (10:00)
--- NOTE | 2017-11-08 10:56 | ECHO ---
DATE OF PROCEDURE: 11/03/2017 PROCEDURE: 2D echocardiogram and Doppler. INDICATION: Syncope. MEASUREMENTS: Wall thickness, chamber size, aortic root size within normal limits. DESCRIPTION OF PROCEDURE: Overall left ventricular systolic function is within normal limits. There is mild anterior hypokinesis. The estimated left ventricular ejection fraction is 50-55%. There is no pericardial effusion. The mitral valve is normal in structure and function. The tricuspid valve is normal in structure and function with mild tricuspid regurgitation. There is mild aortic insufficiency with no evidence of aortic stenosis. The pulmonic valve was poorly seen. IMPRESSION: 1) Preserved left ventricular systolic function with an estimated left ventricular ejection fraction of 50 to 55%. 2) Mild anterior hypokinesis. 3) Mildly calcified mitral valve apparatus with no evidence of mitral stenosis. 4) Mild tricuspid regurgitation with normal right ventricular systolic pressure. 5) Mild aortic insufficiency.
== END 2017-11-03 09:30 | disposition home or self-care (01) ==
LOC: ED 09:46 → MED SURG 13:34
PROVIDERS: ADMIT Family Medicine; ATTEND Family Medicine
DX: R55 Syncope and collapse (principal); Z86.73 Personal history of transient ischemic attack (TIA), and cerebral infarction without residual deficits; M19.90 Unspecified osteoarthritis, unspecified site; F41.9 Anxiety disorder, unspecified; Z72.0 Tobacco use; F12.90 Cannabis use, unspecified, uncomplicated; M25.552 Pain in left hip; G89.29 Other chronic pain; F45.42 Pain disorder with related psychological factors; Z79.899 Other long term (current) drug therapy
CPT/HCPCS: 36000; 36415; 70450; 71010; 71260; 80053; 80061; 80307; 81002; 82805; 82962; 83721; 84484; 85025; 85379; 93005; 93041; 93306; 93880; 94760; 96360; 99285; G0378; G0481; A9270-GY

== ENCOUNTER 2018-03-10 14:13 | Emergency (ER) | payer OTHER ==
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
[2018-03-10] MEDS ORDERED: Sodium Chloride 0.9% 1000 ML 1,000 ML IV SCH (14:30)
[2018-03-10 14:33] LABS: BASOPHIL % 0.8 % (0.0-0.4); Basophil (Absolute #) 0.06 (0-0.4); Eosinophil % 1.8 % (0.00-5.0); Eosinophil (Absolute #) 0.14 (0-0.5); Granulocytes % 59.6 % (36.0-66.0); Hematocrit 45.5 % (42-50); Hemoglobin 15.9 gm/dl (12.5-18.0); Lymphocyte (Absolute #) 2.28 (1.0-4.6); Mean Cell Volume 91.7 fl (78-100); Mean Corpuscular Hemoglobin 32.1 pg (26-32); Mean Corpuscular Hgb Concent. 34.9 g/dl (32-36); Mean Platelet Volume 10.4 fl (6-9.5); Monocyte (Absolute #) 0.69 (0.0-1.3); Monocytes % 8.8 % (0.0-12.0); Platelet Count 226 K/mm3 (150-450); Red Blood Count 4.96 M/mm3 (4.1-5.6); Red Cell Distribution Width 13.4 % (11.5-14.0); White Blood Count 7.9 K/mm3 (4.0-10.5)
[2018-03-10 14:36] LABS: A-aADO2 69; ABG HEMOGLOBIN 15.8; ABG POTASSIUM 3.9 (3.5-5.1); ARTERIAL BLOOD GAS BASE EXCESS -1.4 (-2.0-2.0); ARTERIAL BLOOD GAS FIO2 28 %; ARTERIAL BLOOD GAS PCO2 31 mmHg (35-45); ARTERIAL BLOOD GAS PO2 92 mmHg (75-100); ARTERIAL BLOOD GAS pH 7.45 (7.35-7.45); CARBOXYHEMOGLOBIN 7.5 % THgb (0.0-6.9); HCO3- 21.5 (22-28); HGB O2 SAT 90.8 g/dF (94-100); Methhemoglobin 0.7 % (1.4-1.5); paO2 pAO1 0.57
[2018-03-10 14:37] LABS: ABG SITE LEFT BRACHIAL
[2018-03-10] MEDS ORDERED: Sodium Chloride 0.9% 1000 ML 1,000 ML ONE (14:47)
[2018-03-10 14:56] LABS: INR 1.04 (0.8-3.0)
[2018-03-10 14:58] LABS: D-DIMER QUANTITATION 349.51 ng/mL (215-500)
[2018-03-10 14:59] LABS: PTT 27.8 SECONDS (24.1-36.1)
[2018-03-10 15:08] LABS: ALBUMIN 4.4 g/dL (3.5-5.0); ALKALINE PHOSPHATASE 76 U/L (38-126); AMYLASE 80 U/L (30-110); ANION GAP 14.7 MEQ/L (5-15); BLOOD UREA NITROGEN 24 mg/dL (9-20); CHLORIDE 108 mmol/L (98-107); Calcium 9.3 mg/dL (8.4-10.2); Carbon Dioxide 21 mmol/L (22-30); Creatinine 1 1.45 mg/dL (0.66-1.25); Glucose 116 mg/dL (74-106); LIPASE 148 U/L (23-300); SGOT/AST 20 U/L (17-59); SGPT/ALT 24 U/L (0-50); SODIUM 139 mmol/L (137-145); Total Protein 7.4 g/dL (6.3-8.2)
[2018-03-10 15:20] LABS: NT PRO BNP 86.4 pg/mL (0-900)
[2018-03-10 15:26] LABS: TROPONIN < 0.012 ng/mL (0.000-0.034)
[2018-03-10] MEDS ORDERED: Sodium Chloride 0.9% 1000 ML 1,000 ML IV STA (15:42)
[2018-03-10 16:54] LABS: Amphetamine,Urine NEGATIVE (NEGATIVE); Barbiturate,Urine NEGATIVE (NEGATIVE); Benzodiazepine,Urine NEGATIVE (NEGATIVE); Cocaine,Urine NEGATIVE (NEGATIVE); Methadone,Urine NEGATIVE (NEGATIVE); Opiate,Urine NEGATIVE (NEGATIVE); PCP,Urine NEGATIVE (NEGATIVE); THC,Urine POSITIVE (NEGATIVE)
[2018-03-10 16:57] LABS: Appearance CLEAR (CLEAR); Bilirubin NEGATIVE (NEGATIVE); Blood NEGATIVE Ery/ul (0-5); Glucose NEGATIVE (NEGATIVE); Ketones NEGATIVE (NEGATIVE); Leukocyte Esterase NEGATIVE (NEGATIVE); Nitrite NEGATIVE (NEGATIVE); Ph 6.5 (5-6); Protein,Urine Dip NEGATIVE (Negative); Urobilinogen NORMAL mg/dL (0-1)
[2018-03-10 17:46] VITALS: BP 137/78; PULSE 60
[2018-03-10 17:52] VITALS: O2SAT 97
[2018-03-10] MEDS ORDERED: Zithromax 250 MG TABLET PO ONE (18:38)
[2018-03-10] MEDS ORDERED: Robitussin AC Syrup Unit Dose Cup PO PRN (18:40)
[2018-03-10] MEDS ORDERED: Zithromax 250 MG TABLET ONE (18:43)
[2018-03-10] MEDS ORDERED: Robitussin AC Syrup Unit Dose Cup ONE (18:43)
--- NOTE | 2018-03-10 20:56 | XRAY ---
Indication: Dizziness and left-sided numbness. Multiple contiguous axial images obtained through the head without contrast. Comparison: November 02, 2017. Again normal appearing brain parenchyma, ventricles, and bony calvarium. Visualized paranasal sinuses and mastoid air cells are clear. Impression: Stable normal CT head without contrast exam. Comment: Preliminary interpretation was made by [facility]. No discrepancy. CTDI 65.67
--- NOTE | 2018-03-10 21:02 | XRAY ---
Indication: Dizziness. Comparison: November 02, 2017. Portable chest again hyperinflated with scattered fibrosis/scarring in CT proven bilateral upper lobe calcified granulomas. Heart and mediastinal structures within normal limits. Bony thorax intact. Impression: Stable nonacute hyperinflated chest. Again evidence for old granulomatous disease. Comment: Preliminary interpretation was made by [facility]. No critical discrepancy.
--- NOTE | 2018-03-10 21:06 | XRAY ---
Indication: Weakness and dizziness. Multiple contiguous axial images obtained through the chest without contrast as ordered. Comparison: CT PE study November 02, 2017. Stable extensive bullous emphysema, scattered fibrosis/scarring, minimal bibasilar dependent atelectasis, and bilateral upper lobe calcified granulomas. No suspicious pulmonary mass, infiltrate, or effusion. Heart is not enlarged. Aorta is normal in course and caliber. Again a few tiny mediastinal calcified nodes. No pathologic mediastinal lymphadenopathy. Bony thorax intact again with minimal degenerative changes throughout the spine. Limited upper abdomen demonstrates stable 1.5 cm right adrenal adenoma. Impression: 1. Stable bullous emphysema, scattered atelectasis/fibrosis/scarring, and evidence for granulomatous disease. 2. No new/acute cardiopulmonary abnormalities on this noncontrast exam. 3. Stable right adrenal adenoma. Comment: Preliminary interpretation was made by C. No discrepancy. CTDI 15.65
== END 2018-03-10 19:10 | disposition home or self-care (01) ==
LOC: ED 14:13
DX: R42 Dizziness and giddiness (principal); R20.8 Other disturbances of skin sensation; M62.838 Other muscle spasm; R20.0 Anesthesia of skin; J40 Bronchitis, not specified as acute or chronic; J02.9 Acute pharyngitis, unspecified; R11.0 Nausea; M19.90 Unspecified osteoarthritis, unspecified site; F41.9 Anxiety disorder, unspecified
CPT/HCPCS: 36000; 36415; 36600; 70450; 71045; 71250; 80053; 80307; 81002; 82150; 82375; 82803; 82962; 83690; 83735; 83880; 84484; 85025; 85379; 85610; 85730; 93005; 93041; 96360; 99284; 99285; A9270-GY

== ENCOUNTER 2019-01-11 00:12 | Emergency (ER) | payer OTHER ==
[2019-01-11] MEDS ORDERED: Sodium Chloride 0.9% 1000 ML 1,000 ML IV STA (00:14)
[2019-01-11] MEDS ORDERED: Zosyn 3.375GM/100 Ml D5W 3.375 GM/100 ML IVPB IV STA (00:14)
[2019-01-11 00:46] LABS: A-aADO2 36; ABG HEMOGLOBIN 15.7; ABG POTASSIUM 3.5 (3.5-5.1); ARTERIAL BLD GAS O2 SATURATION 96.9 % (95-100); ARTERIAL BLOOD GAS BASE EXCESS -4.3 (-2.0-2.0); ARTERIAL BLOOD GAS FIO2 21 %; ARTERIAL BLOOD GAS PCO2 35 mmHg (35-45); ARTERIAL BLOOD GAS PO2 70 mmHg (75-100); ARTERIAL BLOOD GAS pH 7.37 (7.35-7.45); HCO3- 20.2 (22-28); HGB O2 SAT 89.2 g/dF (94-100); Methhemoglobin 0.8 % (1.4-1.5); paO2 pAO1 0.66
[2019-01-11 00:47] LABS: ABG SITE LEFT BRACHIAL; CARBOXYHEMOGLOBIN 7.2 % THgb (0.0-6.9)
[2019-01-11] MEDS ORDERED: Zofran 4 MG/2 ML VIAL IV ONE ×2 (01:02→02:19)
[2019-01-11] MEDS ORDERED: Sodium Chloride 0.9% 1000 ML 1,000 ML ONE (01:07)
[2019-01-11 01:09] LABS: BASOPHIL % 0.4 % (0.0-0.4); Basophil (Absolute #) 0.04 (0-0.4); Eosinophil % 0.5 % (0.00-5.0); Eosinophil (Absolute #) 0.05 (0-0.5); Granulocyte Absolute (ANC) 9.38 (1.4-6.9); Granulocytes % 85.5 % (36.0-66.0); Hematocrit 44.9 % (42-50); Hemoglobin 15.2 gm/dl (12.5-18.0); Lymphocyte (Absolute #) 1.09 (1.0-4.6); Lymphocytes % 9.9 % (24.0-44.0); Mean Cell Volume 93.9 fl (78-100); Mean Corpuscular Hemoglobin 31.8 pg (26-32); Mean Corpuscular Hgb Concent. 33.9 g/dl (32-36); Mean Platelet Volume 10.6 fl (6-9.5); Monocyte (Absolute #) 0.41 (0.0-1.3); Monocytes % 3.7 % (0.0-12.0); Platelet Count 188 K/mm3 (150-450); Red Blood Count 4.78 M/mm3 (4.1-5.6); Red Cell Distribution Width 13.5 % (11.5-14.0)
[2019-01-11] MEDS ORDERED: Zofran 4 MG/2 ML VIAL ONE ×2 (01:12→02:20)
[2019-01-11] MEDS ORDERED: Zosyn 3.375GM/100 Ml D5W 3.375 GM/100 ML IVPB IV ONE (01:12)
[2019-01-11 01:15] LABS: INR 1.11 (0.8-3.0); PROTIME 12.9 SECONDS (8.83-12.87)
[2019-01-11 01:23] LABS: ALBUMIN 4.2 g/dL (3.5-5.0); ALKALINE PHOSPHATASE 73 U/L (38-126); ANION GAP 12.4 MEQ/L (5-15); BLOOD UREA NITROGEN 21 mg/dL (9-20); CHLORIDE 107 mmol/L (98-107); Calcium 9.2 mg/dL (8.4-10.2); Carbon Dioxide 20 mmol/L (22-30); Creatinine 1 0.81 mg/dL (0.66-1.25); Glucose 181 mg/dL (74-106); Potassium 3.6 mmol/L (3.5-5.1); SALICYLATE 1.2 mg/dL (2-20); SGOT/AST 23 U/L (17-59); SGPT/ALT 30 U/L (0-50); SODIUM 136 mmol/L (137-145); Total Protein 7.1 g/dL (6.3-8.2)
[2019-01-11 01:24] LABS: ACETAMINOPHEN < 10 ug/ml (10-30); ETHYL ALCOHOL < 10 mg/dL (0-10)
[2019-01-11] MEDS ORDERED: TYLENOL EXTRA STRENGTH 500 MG ONE (02:16)
[2019-01-11 02:19] LABS: Appearance CLEAR (CLEAR); Bilirubin NEGATIVE (NEGATIVE); Blood NEGATIVE Ery/ul (0-5); Glucose NEGATIVE (NEGATIVE); Ketones NEGATIVE (NEGATIVE); Leukocyte Esterase NEGATIVE (NEGATIVE); Mucus SLIGHT /HPF (NEGATIVE); Nitrite NEGATIVE (NEGATIVE); Protein,Urine Dip NEGATIVE (Negative); Specific Gravity 1.019 (1.005-1.025); Urobilinogen NEGATIVE mg/dL (0-1)
[2019-01-11 02:23] LABS: Bacteria NONE SEEN /HPF (NEGATIVE)
[2019-01-11] MEDS ORDERED: TYLENOL EXTRA STRENGTH 500 MG PO STA (02:30)
[2019-01-11 02:32] LABS: Amphetamine,Urine NEGATIVE (NEGATIVE); Barbiturate,Urine NEGATIVE (NEGATIVE); Benzodiazepine,Urine NEGATIVE (NEGATIVE); Cocaine,Urine NEGATIVE (NEGATIVE); Methadone,Urine NEGATIVE (NEGATIVE); Opiate,Urine NEGATIVE (NEGATIVE); PCP,Urine NEGATIVE (NEGATIVE); THC,Urine POSITIVE (NEGATIVE)
--- NOTE | 2019-01-11 03:09 | ERPHSYRPT ---
- History of Present Illness Source: family Exam Limitations: clinical condition Patient Subjective Stated Complaint: pt comes in via wheelchair with decreased level of consciousness. pt is pale, cool, and clammy. pt is unable to stand to get in bed. assist of two to get into bed. pt is a poor historian. pt brother describes this as a "spell". pt PERRLA. 2-3mm pupils. pt son states that the pt called him and told him he couldn't see. pt states that his left side is weak and numb. pt stroke scale negative. pt rectal temp is 94.6. pt placed on jessica hugger. temp sensing crowe placed reading temp of 93.6. pt responsive to verbal stimuli. Triage Nursing Assessment: see tab Physician History: Pt is a 58 y/o male that was brought to the ED by his brother. per brother, pt has "spells", when he is not communicating, dizzy, has headache, and not conversing. On presentation, pt had core temp of 94, he was clamy and sweaty. He was not answering questions, was vomiting, and mumbling. No information was able to get from pt. Brother states, that he himself has some "spells", but those are milder than his brother. Timing/Duration: today Severity: severe Baseline/Normal Cognition: poor alertness Current Cognition: poor alertness Associated Symptoms: confusion, nausea, vomiting, slurred speech, other (unable to communicate, not alert or oriented.) Allergies/Adverse Reactions: Penicillins Allergy (Verified 01/11/19 00:54) Hx Tetanus, Diphtheria Vaccination/Date Given: No Hx Influenza Vaccination/Date Given: Yes Hx Pneumococcal Vaccination/Date Given: No Immunizations Up to Date: Yes - Review of Systems Constitutional: Other (could not get any ROS from pt) - Past Medical History Pertinent Past Medical History: Yes Neurological History: TIA ENT History: Cataracts Cardiac History: No Pertinent History Respiratory History: Pneumonia Endocrine Medical History: No Pertinent History Musculoskeletal History: Arthritis GI Medical History: Hernia History: Other Psycho-Social History: Anxiety Male Reproductive Disorders: Prostate Problems Other Medical History: CHRONIC PAIN HIP - LEFT HIP AND ANKLES. MASS ON KIDNEYS - Past Surgical History Past Surgical History: Yes Neuro Surgical History: No Pertinent History Cardiac: No Pertinent History Respiratory: No Pertinent History Gastrointestinal: Hernia Repair Genitourinary: No Pertinent History Musculoskeletal: No Pertinent History Male Surgical History: No Pertinent History - Social History Smoking Status: Current every day smoker How long have you smoked: 40 years Exposure to second hand smoke: No Drug Use: none Patient Lives Alone: No - Nursing Vital Signs Nursing Vital Signs: Initial Vital Signs Temperature 94.6 F 01/11/19 00:13 Pulse Rate 54 L 01/11/19 00:13 Respiratory Rate 18 01/11/19 00:13 Blood Pressure 159/79 01/11/19 00:13 O2 Sat by Pulse Oximetry 100 01/11/19 00:13 Pain Scale Pain Intensity 0 - Kate Coma Scale Best Eye Response (Kate): (4) open spontaneously Best Verbal Response (Kate): (2) incomprehsible sounds Best Motor Response ([place]): (6) obeys commands [place] Total: 12 - Physical Exam General Appearance: severe distress Eye Exam: bilateral eye: normal inspection, PERRL, EOMI Ears, Nose, Throat Exam: normal ENT inspection, dry mucous membranes Neck Exam: normal inspection, non-tender, supple Respiratory: normal breath sounds, lungs clear, airway intact, No respiratory distress Cardiovascular: bradycardia, capillary refill 2-3 sec, other (secondary to profund hypothermia) Extremity Exam: normal inspection, No pedal edema Mental Status: disoriented to place, disoriented to time, lethargy slope tender Exam: normal hearing, PERRL Coordination/Gait: ABN nose to finger (R), ABN nose to finger (L) Skin Exam: diaphoresis, mottled, pale SpO2: 98 O2 Delivery: Nasal Cannula - Course Nursing assessment & vital signs reviewed: Yes EKG Interpreted by Me: RATE (51bpm), Sinus Neto - CT Exams Head CT Interpretation: Negative (No acute finding) Ordered Tests: Active Orders 24 hr Category Date Time Status Oxygen-ED Only Nasal Cannula 2 lpm Care 01/11/19 00:14 Active HEAD WITHOUT CONTRAST [CT] Stat Exams 01/11/19 00:18 Taken ACETAMINOPHEN Stat Lab 01/11/19 01:02 Completed ARTERIAL BLOOD GASES Stat Lab 01/11/19 00:41 Completed BLOOD CULTURE Stat Lab 01/11/19 01:02 Received CBC W DIFF Stat Lab 01/11/19 01:02 Completed CMP Stat Lab 01/11/19 01:02 Completed ETHYL ALCOHOL Stat Lab 01/11/19 01:02 Completed Lactic Acid Stat Lab 01/11/19 00:41 Completed PROTIME WITH INR Stat Lab 01/11/19 01:02 Completed SALICYLATE Stat Lab 01/11/19 01:02 Completed TROPONIN Q3H Lab 01/11/19 01:02 Completed TROPONIN Q3H Lab 01/11/19 03:30 Ordered TROPONIN Q3H Lab 01/11/19 06:30 Ordered TROPONIN Q3H Lab 01/11/19 09:30 Ordered TROPONIN Q3H Lab 01/11/19 12:30 Ordered Urinalysis with Microscopy Stat Lab 01/11/19 02:13 Completed Urine Triage Profile Stat Lab 01/11/19 02:13 Completed Medication Summary Discontinued Medications Generic Name Dose Route Start Last Admin Trade Name Freq PRN Reason Stop Dose Admin Acetaminophen Confirm 01/11/19 02:16 Tylenol Extra Strength 500 Mg Administered 01/11/19 02:17 Dose 1,000 mg .ROUTE .STK-MED ONE Acetaminophen 1,000 mg 01/11/19 02:30 Tylenol Extra Strength 500 Mg PO 01/11/19 02:31 STAT STA Sodium Chloride 1,000 mls @ 999 mls/hr 01/11/19 00:14 01/11/19 01:25 Sodium Chloride 0.9% 1000 Ml IV 01/11/19 01:14 999 mls/hr .Q1H1M STA Administration Piperacillin Sod/Tazobactam Sod 3.375 gm in 100 mls @ 200 mls/hr 01/11/19 00: 14 01/11/19 02:24 Zosyn 3.375gm/100 Ml D5w IV 01/11/19 00:43 100 mls/hr STAT STA 100 mls/hr Administration Sodium Chloride Confirm 01/11/19 01:07 Sodium Chloride 0.9% 1000 Ml Administered 01/11/19 01:08 Dose 1,000 mls @ ud .ROUTE .STK-MED ONE Piperacillin Sod/Tazobactam Sod Confirm 01/11/19 01:12 Zosyn 3.375gm/100 Ml D5w Administered 01/11/19 01:13 Dose 3.375 gm in 100 mls @ ud IV .STK-MED ONE Ondansetron HCl 4 mg 01/11/19 01:02 01/11/19 01:25 Zofran 4 Mg/2 Ml Vial IV 01/11/19 01:03 4 mg STAT ONE Administration Ondansetron HCl Confirm 01/11/19 01:12 Zofran 4 Mg/2 Ml Vial Administered 01/11/19 01:13 Dose 4 mg .ROUTE .STK-MED ONE Ondansetron HCl 4 mg 01/11/19 02:19 01/11/19 02:27 Zofran 4 Mg/2 Ml Vial IV 01/11/19 02:20 4 mg STAT ONE Administration Ondansetron HCl Confirm 01/11/19 02:20 Zofran 4 Mg/2 Ml Vial Administered 01/11/19 02:21 Dose 4 mg .ROUTE .STK-MED ONE Lab/Rad Data: Laboratory Result Diagrams 01/11/19 01:02 01/11/19 01:02 Laboratory Results 01/11/19 01/11/19 01/11/19 Range/Units 02:13 02:13 01:02 WBC (4.0-10.5) K/mm3 RBC (4.1-5.6) M/mm3 Hgb (12.5-18.0) gm/dl Hct (42-50) % MCV (78-100) fl MCH (26-32) pg MCHC (32-36) g/dl RDW (11.5-14.0) % Plt Count (150-450) K/mm3 MPV (6-9.5) fl Gran % (36.0-66.0) % Eos # (Auto) (0-0.5) Absolute Lymphs (auto) (1.0-4.6) Absolute Monos (auto) (0.0-1.3) Lymphocytes % (24.0-44.0) % Monocytes % (0.0-12.0) % Eosinophils % (0.00-5.0) % Basophils % (0.0-0.4) % Absolute Granulocytes (1.4-6.9) Basophils # (0-0.4) PT (8.83-12.87) SECONDS INR (0.8-3.0) Puncture Site pCO2 (35-45) mmHg pO2 (75-100) mmHg Base Excess (-2.0-2.0) O2 Saturation (94-100) g/dF ABG pH (7.35-7.45) ABG HCO3 (22-28) ABG O2 Sat (Measured) (95-100) % Ish Test A-a Gradient a/A Ratio Hemoglobin Carboxyhemoglobin (0.0-6.9) % THgb Methemoglobin (1.4-1.5) % Potassium (3.5-5.1) Temperature C POC O2 Flow Rate % Sodium (137-145) mmol/L Chloride (98-107) mmol/L Carbon Dioxide (22-30) mmol/L Anion Gap (5-15) MEQ/L BUN (9-20) mg/dL Creatinine (0.66-1.25) mg/dL Estimated GFR ML/MIN Glucose (74-106) mg/dL Lactic Acid (0.4-2.0) Calcium (8.4-10.2) mg/dL Total Bilirubin (0.2-1.3) mg/dL AST (17-59) U/L ALT (0-50) U/L Alkaline Phosphatase (38-126) U/L Troponin I < 0.012 (0.000-0.034) ng/mL Serum Total Protein (6.3-8.2) g/dL Albumin (3.5-5.0) g/dL Urine Color YELLOW (YELLOW) Urine Appearance CLEAR (CLEAR) Urine pH 5.0 (5-6) Ur Specific [place] 1.019 (1.005-1.025) Urine Protein NEGATIVE (Negative) Urine Ketones NEGATIVE (NEGATIVE) Urine Blood NEGATIVE (0-5) Daniel/ul Urine Nitrite NEGATIVE (NEGATIVE) Urine Bilirubin NEGATIVE (NEGATIVE) Urine Urobilinogen NEGATIVE (0-1) mg/dL Ur Leukocyte Esterase NEGATIVE (NEGATIVE) Urine WBC (Auto) NONE (0-5) /HPF Urine RBC (Auto) NONE (0-2) /HPF U Epithel Cells (Auto) NONE (FEW) /HPF Urine Bacteria (Auto) NONE SEEN (NEGATIVE) /HPF Urine Mucus (Auto) SLIGHT (NEGATIVE) /HPF Urine Glucose NEGATIVE (NEGATIVE) mg/dL Salicylates (2-20) mg/dL Urine Opiates Level NEGATIVE (NEGATIVE) Ur Methadone NEGATIVE (NEGATIVE) Acetaminophen (10-30) ug/ml Urine Barbiturates NEGATIVE (NEGATIVE) Ur Phencyclidine (PCP) NEGATIVE (NEGATIVE) Urine Amphetamine NEGATIVE (NEGATIVE) U Benzodiazepine Level NEGATIVE (NEGATIVE) Urine Cocaine NEGATIVE (NEGATIVE) Urine Marijuana (THC) POSITIVE (NEGATIVE) Ethyl Alcohol (0-10) mg/dL 01/11/19 01/11/19 01/11/19 Range/Units 01:02 01:02 01:02 WBC 11.0 H (4.0-10.5) K/mm3 RBC 4.78 (4.1-5.6) M/mm3 Hgb 15.2 (12.5-18.0) gm/dl Hct 44.9 (42-50) % MCV 93.9 (78-100) fl MCH 31.8 (26-32) pg MCHC 33.9 (32-36) g/dl RDW 13.5 (11.5-14.0) % Plt Count 188 (150-450) K/mm3 MPV 10.6 H (6-9.5) fl Gran % 85.5 H (36.0-66.0) % Eos # (Auto) 0.05 (0-0.5) Absolute Lymphs (auto) 1.09 (1.0-4.6) Absolute Monos (auto) 0.41 (0.0-1.3) Lymphocytes % 9.9 L (24.0-44.0) % Monocytes % 3.7 (0.0-12.0) % Eosinophils % 0.5 (0.00-5.0) % Basophils % 0.4 (0.0-0.4) % Absolute Granulocytes 9.38 H (1.4-6.9) Basophils # 0.04 (0-0.4) PT 12.9 H (8.83-12.87) SECONDS INR 1.11 (0.8-3.0) Puncture Site pCO2 (35-45) mmHg pO2 (75-100) mmHg Base Excess (-2.0-2.0) O2 Saturation (94-100) g/dF ABG pH (7.35-7.45) ABG HCO3 (22-28) ABG O2 Sat (Measured) (95-100) % Ish Test A-a Gradient a/A Ratio Hemoglobin Carboxyhemoglobin (0.0-6.9) % THgb Methemoglobin (1.4-1.5) % Potassium 3.6 (3.5-5.1) Temperature C POC O2 Flow Rate % Sodium 136 L (137-145) mmol/L Chloride 107 (98-107) mmol/L Carbon Dioxide 20 L (22-30) mmol/L Anion Gap 12.4 (5-15) MEQ/L BUN 21 H (9-20) mg/dL Creatinine 0.81 (0.66-1.25) mg/dL Estimated GFR > 60.0 ML/MIN Glucose 181 H (74-106) mg/dL Lactic Acid (0.4-2.0) Calcium 9.2 (8.4-10.2) mg/dL Total Bilirubin 0.70 (0.2-1.3) mg/dL AST 23 (17-59) U/L ALT 30 (0-50) U/L Alkaline Phosphatase 73 (38-126) U/L Troponin I (0.000-0.034) ng/mL Serum Total Protein 7.1 (6.3-8.2) g/dL Albumin 4.2 (3.5-5.0) g/dL Urine Color (YELLOW) Urine Appearance (CLEAR) Urine pH (5-6) Ur Specific [place] (1.005-1.025) Urine Protein (Negative) Urine Ketones (NEGATIVE) Urine Blood (0-5) Daniel/ul Urine Nitrite (NEGATIVE) Urine Bilirubin (NEGATIVE) Urine Urobilinogen (0-1) mg/dL Ur Leukocyte Esterase (NEGATIVE) Urine WBC (Auto) (0-5) /HPF Urine RBC (Auto) (0-2) /HPF U Epithel Cells (Auto) (FEW) /HPF Urine Bacteria (Auto) (NEGATIVE) /HPF Urine Mucus (Auto) (NEGATIVE) /HPF Urine Glucose (NEGATIVE) mg/dL Salicylates 1.2 L (2-20) mg/dL Urine Opiates Level (NEGATIVE) Ur Methadone (NEGATIVE) Acetaminophen < 10 L (10-30) ug/ml Urine Barbiturates (NEGATIVE) Ur Phencyclidine (PCP) (NEGATIVE) Urine Amphetamine (NEGATIVE) U Benzodiazepine Level (NEGATIVE) Urine Cocaine (NEGATIVE) Urine Marijuana (THC) (NEGATIVE) Ethyl Alcohol < 10 (0-10) mg/dL 01/11/19 01/11/19 Range/Units 00:41 00:41 WBC (4.0-10.5) K/mm3 RBC (4.1-5.6) M/mm3 Hgb (12.5-18.0) gm/dl Hct (42-50) % MCV (78-100) fl MCH (26-32) pg MCHC (32-36) g/dl RDW (11.5-14.0) % Plt Count (150-450) K/mm3 MPV (6-9.5) fl Gran % (36.0-66.0) % Eos # (Auto) (0-0.5) Absolute Lymphs (auto) (1.0-4.6) Absolute Monos (auto) (0.0-1.3) Lymphocytes % (24.0-44.0) % Monocytes % (0.0-12.0) % Eosinophils % (0.00-5.0) % Basophils % (0.0-0.4) % Absolute Granulocytes (1.4-6.9) Basophils # (0-0.4) PT (8.83-12.87) SECONDS INR (0.8-3.0) Puncture Site LEFT BRACHIAL pCO2 35 (35-45) mmHg pO2 70 L (75-100) mmHg Base Excess -4.3 L (-2.0-2.0) O2 Saturation 89.2 L (94-100) g/dF ABG pH 7.37 (7.35-7.45) ABG HCO3 20.2 L (22-28) ABG O2 Sat (Measured) 96.9 (95-100) % Ish Test NOT APPLICABLE A-a Gradient 36 a/A Ratio 0.66 Hemoglobin 15.7 Carboxyhemoglobin 7.2 H* (0.0-6.9) % THgb Methemoglobin 0.8 L (1.4-1.5) % Potassium 3.5 (3.5-5.1) Temperature 37.0 C POC O2 Flow Rate 21 % Sodium (137-145) mmol/L Chloride (98-107) mmol/L Carbon Dioxide (22-30) mmol/L Anion Gap (5-15) MEQ/L BUN (9-20) mg/dL Creatinine (0.66-1.25) mg/dL Estimated GFR ML/MIN Glucose (74-106) mg/dL Lactic Acid 1.5 (0.4-2.0) Calcium (8.4-10.2) mg/dL Total Bilirubin (0.2-1.3) mg/dL AST (17-59) U/L ALT (0-50) U/L Alkaline Phosphatase (38-126) U/L Troponin I (0.000-0.034) ng/mL Serum Total Protein (6.3-8.2) g/dL Albumin (3.5-5.0) g/dL Urine Color (YELLOW) Urine Appearance (CLEAR) Urine pH (5-6) Ur Specific [place] (1.005-1.025) Urine Protein (Negative) Urine Ketones (NEGATIVE) Urine Blood (0-5) Daniel/ul Urine Nitrite (NEGATIVE) Urine Bilirubin (NEGATIVE) Urine Urobilinogen (0-1) mg/dL Ur Leukocyte Esterase (NEGATIVE) Urine WBC (Auto) (0-5) /HPF Urine RBC (Auto) (0-2) /HPF U Epithel Cells (Auto) (FEW) /HPF Urine Bacteria (Auto) (NEGATIVE) /HPF Urine Mucus (Auto) (NEGATIVE) /HPF Urine Glucose (NEGATIVE) mg/dL Salicylates (2-20) mg/dL Urine Opiates Level (NEGATIVE) Ur Methadone (NEGATIVE) Acetaminophen (10-30) ug/ml Urine Barbiturates (NEGATIVE) Ur Phencyclidine (PCP) (NEGATIVE) Urine Amphetamine (NEGATIVE) U Benzodiazepine Level (NEGATIVE) Urine Cocaine (NEGATIVE) Urine Marijuana (THC) (NEGATIVE) Ethyl Alcohol (0-10) mg/dL - Progress Progress: unchanged Progress Note: 01/11/19 03:13 Pt is a 58 y/o male that presented unresponsive to the ED. Work up was done, that showed no elicit drugs in the urine, no OD, no ETOH. Labs were norml, but pt was hypothermic, minimally responsive. Dr Cuellar for neurology was contacted, and accepted to [facility] ED. Will see patient in: ED (Dr Cuellar, [facility] ED) - Departure Time of Disposition: 03:15 Departure Disposition: Transfer Clinical Impression: Metabolic encephalopathy Condition: Stable Critical Care Time: Yes Critical Care Time(excluding separately billable procedures): 30-74 minutes Referrals: SABIHA HENSLEY [Primary Care Provider] - Additional Instructions: Pt will be transferred to [facility] ED, Dr Cuellar accepted for Neurology.
[2019-01-11 03:53] VITALS: BP 145/71; PULSE 55; O2SAT 100
--- NOTE | 2019-01-11 09:32 | XRAY ---
Indication: Dizziness, nausea, and vomiting. No known injury. Multiple contiguous axial images obtained through the head without contrast. Comparison: March 10, 2018. Again normal appearing brain parenchyma, ventricles, and bony calvarium. Visualized paranasal sinuses and mastoid air cells are clear. Impression: Normal CT head without contrast exam. Comment: Preliminary interpretation was made by [facility]. No discrepancy. CT DI 69.79
[2019-01-12 06:28] LABS: OSMOLALITY SERUM 292 mOsm/kg (282-304)
[2019-01-12 07:37] LABS: OSMOLALITY URINE 653 mOsm/kg
[2019-01-12 07:38] LABS: PROLACTIN 21.9 ng/mL (4.0-15.2)
== END 2019-01-11 04:10 | disposition short-term general hospital (02) ==
LOC: ED 00:12
DX: G93.41 Metabolic encephalopathy (principal); R41.0 Disorientation, unspecified; R11.2 Nausea with vomiting, unspecified; R47.81 Slurred speech
CPT/HCPCS: 70450; 80053; 80307; 81001; 82375; 82803; 83605; 83930; 83935; 84145; 84146; 84484; 85025; 85610; 87040; 96360; 96365; 96374; 96376; 99291; G0480; G0481; 36000; 36415; 36600; 99285; J2405; J2543; A9270-GY

== ENCOUNTER 2019-06-17 01:15 | Observation (INO) | payer OTHER ==
[2019-06-17] MEDS ORDERED: MORPHINE SULFATE 10 MG/ML IV ONE (01:45)
[2019-06-17] MEDS ORDERED: Zofran 4 MG/2 ML VIAL IV ONE (01:47)
[2019-06-17] MEDS ORDERED: Zofran 4 MG/2 ML VIAL ONE (01:50)
[2019-06-17] MEDS ORDERED: MORPHINE SULFATE 10 MG/ML ONE (01:51)
--- NOTE | 2019-06-17 01:55 | ERPHSYRPT ---
- History of Present Illness Time Seen by Provider: 06/17/19 01:51 Historian: patient Exam Limitations: no limitations Patient Subjective Stated Complaint: Chest pain Triage Nursing Assessment: Patient ambulated into ED and transferred self to bed. Patient A+O X 3. Patient's skin pink, warm and dry. Patient complains of sharp, pressure in chest 10/10 for about one hour. Patient states he was woke up with the pain. Patient's lungs clear a/p cintia. Heart tones audible. No edema noted. Patient states he is scheduled for Cardac bypass surgery on June 28. Physician History: C/o mid sternal chest pain started 1 hour ago, woke him up. He denies radiating pain, no severe SOB, vomiting, other complaints. 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 Timing/Duration: hour(s) (1) Activities at Onset: sleep Quality: sharpness Location: substernal Chest Pain Radiation: no radiation Severity of Pain-Max: severe Severity of Pain-Current: severe Modifying Factors: Improves With: nothing Associated Symptoms: nausea, shortness of breath Prior Chest Pain/Cardiac Workup: no prior chest pain Nitro Today/Relief: no nitro taken today Aspirin Treatment Today: no aspirin today Allergies/Adverse Reactions: No Known Drug Allergies Allergy (Unverified 06/17/19 01:22) Home Medications: Apixaban [Eliquis] 1 tab PO DAILY 06/17/19 [History] Atorvastatin Calcium [Lipitor] 40 mg PO DAILY 06/17/19 [History] Hx Tetanus, Diphtheria Vaccination/Date Given: No Hx Influenza Vaccination/Date Given: Yes Hx Pneumococcal Vaccination/Date Given: No Immunizations Up to Date: Yes - Review of Systems Constitutional: No Symptoms Ears, Nose, & Throat: No Symptoms Respiratory: Dyspnea Cardiac: Chest Pain, No Edema Abdominal/Gastrointestinal: Nausea Genitourinary Symptoms: No Symptoms Musculoskeletal: No Symptoms Skin: No Symptoms Neurological: No Symptoms All Other Systems: Reviewed and Negative - Past Medical History Pertinent Past Medical History: Yes Neurological History: TIA ENT History: Cataracts Cardiac History: High Cholesterol Respiratory History: Pneumonia Endocrine Medical History: No Pertinent History Musculoskeletal History: Arthritis GI Medical History: Hernia History: Other Psycho-Social History: Anxiety Male Reproductive Disorders: Prostate Problems Other Medical History: CHRONIC PAIN HIP - LEFT HIP AND ANKLES. MASS ON KIDNEYS, - Past Surgical History Past Surgical History: Yes Neuro Surgical History: No Pertinent History Cardiac: No Pertinent History Respiratory: No Pertinent History Gastrointestinal: Hernia Repair Genitourinary: No Pertinent History Musculoskeletal: No Pertinent History Male Surgical History: No Pertinent History - Social History Smoking Status: Former smoker How long have you smoked: 40 years Exposure to second hand smoke: No Drug Use: none Patient Lives Alone: No - Nursing Vital Signs Nursing Vital Signs: Initial Vital Signs Pulse Rate 66 06/17/19 01:15 Respiratory Rate 19 06/17/19 01:15 Blood Pressure 160/100 06/17/19 01:15 O2 Sat by Pulse Oximetry 98 06/17/19 01:15 Pain Scale Pain Intensity 6 - Physical Exam General Appearance: no apparent distress Eye Exam: eyes nml inspection Ears, Nose, Throat Exam: normal ENT inspection Neck Exam: normal inspection, non-tender, supple, No carotid bruit, No JVD Respiratory Exam: normal breath sounds, lungs clear, airway intact, No chest tenderness, No respiratory distress Cardiovascular Exam: regular rate/rhythm, normal heart sounds, normal peripheral pulses, No murmur Gastrointestinal/Abdomen Exam: soft, normal bowel sounds, No tenderness, No distention, No mass, No guarding, No ecchymosis, No pulsatile mass, No rebound, No organomegaly Back Exam: normal inspection, No CVA tenderness Extremity Exam: normal inspection Neurologic Exam: alert, oriented x 3, normal mood/affect Skin Exam: normal color, warm, dry, No rash, No cyanosis, No diaphoresis Lymphatic Exam: No adenopathy SpO2 Interpretation: normal SpO2: 98 O2 Delivery: Room Air - Course Nursing assessment & vital signs reviewed: Yes EKG Interpreted by Me: RATE (59/min), Sinus Neto, NORMAL AXIS, NORMAL INTERVALS , NORMAL QRS, Non-specific ST Changes - Radiology Exams Chest X-ray Interpretation: Interpreted by me, Negative, Other (COPD) Ordered Tests: Active Orders 24 hr Category Date Time Status Assistant Chief Of Police STAT Care 06/17/19 01:46 Active EKG-ER Only STAT Care 06/17/19 01:45 Active IV Insertion STAT Care 06/17/19 01:45 Active Oxygen-ED Only Nasal Cannula 2 lpm Care 06/17/19 01:45 Active CHEST 1 VIEW (PORTABLE) Stat Exams 06/17/19 01:45 Ordered CBC W DIFF Stat Lab 06/17/19 02:01 Completed CK-Creatinine Phosphokinase Stat Lab 06/17/19 02:01 Completed CMP Stat Lab 06/17/19 02:01 Completed LIPASE Stat Lab 06/17/19 02:01 Completed MAGNESIUM Stat Lab 06/17/19 02:01 Completed Manual Differential NC Stat Lab 06/17/19 02:01 Completed NT PRO BNP Stat Lab 06/17/19 02:01 Completed PROTIME WITH INR Stat Lab 06/17/19 02:01 Completed PTT Stat Lab 06/17/19 02:01 Completed TROPONIN Q3H Lab 06/17/19 02:01 Completed TROPONIN Q3H Lab 06/17/19 04:45 Ordered TROPONIN Q3H Lab 06/17/19 07:45 Ordered TROPONIN Q3H Lab 06/17/19 10:45 Ordered TROPONIN Q3H Lab 06/17/19 13:45 Ordered Urine Triage Profile Stat Lab 06/17/19 02:05 Completed Medication Summary Discontinued Medications Generic Name Dose Route Start Last Admin Trade Name Freq PRN Reason Stop Dose Admin Morphine Sulfate 6 mg 06/17/19 01:45 06/17/19 01:56 Morphine Sulfate 10 Mg/Ml IV 06/17/19 01:46 6 mg STAT ONE Administration Morphine Sulfate Confirm 06/17/19 01:51 Morphine Sulfate 10 Mg/Ml Administered 06/17/19 01:52 Dose 10 mg .ROUTE .STK-MED ONE Ondansetron HCl 4 mg 06/17/19 01:47 06/17/19 01:59 Zofran 4 Mg/2 Ml Vial IV 06/17/19 01:48 4 mg STAT ONE Administration Ondansetron HCl Confirm 06/17/19 01:50 Zofran 4 Mg/2 Ml Vial Administered 06/17/19 01:51 Dose 4 mg .ROUTE .STK-MED ONE Lab/Rad Data: Laboratory Result Diagrams 06/17/19 02:01 06/17/19 02:01 Laboratory Results 06/17/19 06/17/19 06/17/19 Range/Units 02:05 02:01 02:01 WBC (4.0-10.5) K/mm3 RBC (4.1-5.6) M/mm3 Hgb (12.5-18.0) gm/dl Hct (42-50) % MCV (78-100) fl MCH (26-32) pg MCHC (32-36) g/dl RDW (11.5-14.0) % Plt Count (150-450) K/mm3 MPV (6-9.5) fl PT 12.4 (8.83-12.87) SECONDS INR 1.10 (0.8-3.0) APTT 32.9 (24.1-36.1) SECONDS Sodium (137-145) mmol/L Potassium (3.5-5.1) mmol/L Chloride (98-107) mmol/L Carbon Dioxide (22-30) mmol/L Anion Gap (5-15) MEQ/L BUN (9-20) mg/dL Creatinine (0.66-1.25) mg/dL Estimated GFR ML/MIN Glucose (74-106) mg/dL Calcium (8.4-10.2) mg/dL Magnesium (1.6-2.3) mg/dL Total Bilirubin (0.2-1.3) mg/dL AST (17-59) U/L ALT (0-50) U/L Alkaline Phosphatase (38-126) U/L Creatine Kinase (55-170) U/L Troponin I < 0.012 (0.000-0.034) ng/mL NT-Pro-B Natriuret Pep (0-900) pg/mL Serum Total Protein (6.3-8.2) g/dL Albumin (3.5-5.0) g/dL Lipase (23-300) U/L Urine Opiates Level POSITIVE (NEGATIVE) Ur Methadone NEGATIVE (NEGATIVE) Urine Barbiturates NEGATIVE (NEGATIVE) Ur Phencyclidine (PCP) NEGATIVE (NEGATIVE) Urine Amphetamine NEGATIVE (NEGATIVE) U Benzodiazepine Level POSITIVE (NEGATIVE) Urine Cocaine NEGATIVE (NEGATIVE) Urine Marijuana (THC) POSITIVE (NEGATIVE) 06/17/19 06/17/19 Range/Units 02:01 02:01 WBC 5.4 (4.0-10.5) K/mm3 RBC 4.34 (4.1-5.6) M/mm3 Hgb 14.0 (12.5-18.0) gm/dl Hct 41.0 L (42-50) % MCV 94.5 (78-100) fl MCH 32.3 H (26-32) pg MCHC 34.1 (32-36) g/dl RDW 14.3 H (11.5-14.0) % Plt Count 171 (150-450) K/mm3 MPV 10.3 H (6-9.5) fl PT (8.83-12.87) SECONDS INR (0.8-3.0) APTT (24.1-36.1) SECONDS Sodium 138 (137-145) mmol/L Potassium 4.3 (3.5-5.1) mmol/L Chloride 109 H (98-107) mmol/L Carbon Dioxide 22 (22-30) mmol/L Anion Gap 11.8 (5-15) MEQ/L BUN 25 H (9-20) mg/dL Creatinine 0.75 (0.66-1.25) mg/dL Estimated GFR > 60.0 ML/MIN Glucose 119 H (74-106) mg/dL Calcium 9.3 (8.4-10.2) mg/dL Magnesium 1.9 (1.6-2.3) mg/dL Total Bilirubin 0.60 (0.2-1.3) mg/dL AST 36 (17-59) U/L ALT 47 (0-50) U/L Alkaline Phosphatase 80 (38-126) U/L Creatine Kinase 49 L (55-170) U/L Troponin I (0.000-0.034) ng/mL NT-Pro-B Natriuret Pep 51.9 (0-900) pg/mL Serum Total Protein 7.0 (6.3-8.2) g/dL Albumin 4.0 (3.5-5.0) g/dL Lipase 142 (23-300) U/L Urine Opiates Level (NEGATIVE) Ur Methadone (NEGATIVE) Urine Barbiturates (NEGATIVE) Ur Phencyclidine (PCP) (NEGATIVE) Urine Amphetamine (NEGATIVE) U Benzodiazepine Level (NEGATIVE) Urine Cocaine (NEGATIVE) Urine Marijuana (THC) (NEGATIVE) - Progress Progress: improved Air Movement: good Progress Note: 06/17/19 03:54 Improved after Morphine IV, stable, asleep, when I entered the room, no severe pain or difficulty breathing, called Dr Erickson, discussed our findings, he agreed to admit him for observation, patient was informed and agreed. Blood Culture(s) Obtained: No Antibiotics given: No Discussed with : Dre Will see patient in: hospital (observation) Counseled pt/family regarding: lab results, diagnosis, rad results - Departure Departure Disposition: Observation Clinical Impression: Chest pain Qualifiers: Chest pain type: unspecified Qualified Code(s): R07.9 - Chest pain, unspecified Condition: Good Critical Care Time: No Referrals: SABIHA ERICKSON [Primary Care Provider] - Instructions: Chest Pain (DC), Atypical Chest Pain
[2019-06-17 01:58] LABS: Mean Cell Volume 94.5 fl (78-100); Mean Corpuscular Hemoglobin 32.3 pg (26-32); Mean Corpuscular Hgb Concent. 34.1 g/dl (32-36); Mean Platelet Volume 10.3 fl (6-9.5); Platelet Count 171 K/mm3 (150-450); Red Blood Count 4.34 M/mm3 (4.1-5.6); Red Cell Distribution Width 14.3 % (11.5-14.0); White Blood Count 5.4 K/mm3 (4.0-10.5)
[2019-06-17 02:06] LABS: INR 1.1 (0.8-3.0); PROTIME 12.4 SECONDS (8.83-12.87)
[2019-06-17 02:08] LABS: PTT 32.9 SECONDS (24.1-36.1)
[2019-06-17 02:23] LABS: ALKALINE PHOSPHATASE 80 U/L (38-126); ANION GAP 11.8 MEQ/L (5-15); BLOOD UREA NITROGEN 25 mg/dL (9-20); CHLORIDE 109 mmol/L (98-107); CK-Creatinine Phosphokinase 49 U/L (55-170); Calcium 9.3 mg/dL (8.4-10.2); Carbon Dioxide 22 mmol/L (22-30); Creatinine 1 0.75 mg/dL (0.66-1.25); Glucose 119 mg/dL (74-106); MAGNESIUM 1.9 mg/dL (1.6-2.3); NT PRO BNP 51.9 pg/mL (0-900); Potassium 4.3 mmol/L (3.5-5.1); SGOT/AST 36 U/L (17-59); SGPT/ALT 47 U/L (0-50); SODIUM 138 mmol/L (137-145)
[2019-06-17 02:37] LABS: Amphetamine,Urine NEGATIVE (NEGATIVE); Barbiturate,Urine NEGATIVE (NEGATIVE); Benzodiazepine,Urine POSITIVE (NEGATIVE); Cocaine,Urine NEGATIVE (NEGATIVE); Methadone,Urine NEGATIVE (NEGATIVE); Opiate,Urine POSITIVE (NEGATIVE); PCP,Urine NEGATIVE (NEGATIVE); THC,Urine POSITIVE (NEGATIVE)
[2019-06-17] MEDS ORDERED: MAALOX ES 30 ML UNIT DOSE PO PRN (03:56)
[2019-06-17] MEDS ORDERED: MORPHINE SULFATE 4 MG INJ IV ONE (03:56)
[2019-06-17] MEDS ORDERED: Zofran 4 MG/2 ML VIAL IV PRN (03:56)
[2019-06-17] MEDS ORDERED: Senokot-S Tablet PO PRN (03:56)
[2019-06-17] MEDS ORDERED: TYLENOL 325 MG PO PRN (03:56)
[2019-06-17] MEDS ORDERED: MILK OF MAGNESIA 30 ML PO PRN (03:56)
[2019-06-17 04:23] LABS: ATYPICAL LYMPHS 1 %; Eosinophil 1 % (0.00-3.0); Lymphocytes 41 % (24-44); Monocyte 4 % (0.0-12.0); Neutrophils 53 % (36.-66.); Platelet Estimate NORMAL (NORMAL); Total Cells Counted 100
[2019-06-17] MEDS ORDERED: MORPHINE SULFATE 4 MG INJ ONE (04:26)
[2019-06-17] MEDS: Ecotrin 325 MG PO SCH ×2 (05:22→09:33)
--- NOTE | 2019-06-17 08:47 | XRAY ---
Exam: AP upright portable chest film from 06/17/2019. Comparison: Two-view chest from 05/09/2019, CT of the chest without IV contrast from 03/10/2018, and AP portable chest film from 03/10/2018. Indication: 59-year-old male with chest pain. Findings: The transverse heart size appears within normal limits. A calcified, mildly tortuous thoracic aorta is seen. Otherwise, the yas and mediastinal structures appear unremarkable. Scattered granulomatous calcifications are seen bilaterally, most prominent within the upper lung darnell, representing no change. I believe there are some bullous emphysematous changes within both upper lung darnell. In addition, scattered chronic bilateral interstitial lung markings are seen, most pronounced at the lung bases, left greater than right, and within both lung apices. The interstitial markings appear somewhat more prominent at the lung bases as compared to 05/09/2019 and 03/10/2018. However, inspiratory effort is not as deep on the current study. The present appearance could be due to mild atelectatic changes superimposed upon chronic interstitial scarring. However, it is difficult to entirely exclude the possibility of mild superimposed bibasilar interstitial infiltrates, left greater than right. Clinical correlation is needed. I see no dense air space infiltrates, pneumothorax, or lateral pleural effusions. There is mild biapical pleural thickening/scarring representing no change. No acute osseous process is seen. Impression: 1. Old healed granulomatous disease, some apparent bullous emphysematous changes within both upper lung darnell, and scattered bilateral chronic interstitial scarring are again seen. 2. However, the interstitial markings appear somewhat more prominent at the lung bases, left greater than right, on the current study as compared to 05/09/2019 and 03/10/2018. It is certainly possible that this is due to some mild compression atelectatic changes superimposed upon chronic interstitial scarring. The level of inspiration is not quite as deep on the current study as the previous exams. Alternatively, it is difficult to entirely exclude mild bibasilar interstitial infiltrates, left greater than right. Clinical correlation is needed regarding the possibility that this might represent mild bibasilar interstitial pneumonia.
[2019-06-17] MEDS: NITRO-BID 2% UD PACKETS TOP SCH ×3 (09:33→22:05)
[2019-06-17] MEDS: XANAX 1 MG PO SCH ×3 (09:33→22:05)
[2019-06-17] MEDS: ELIQUIS 2.5 MG TABLET PO SCH (09:33)
[2019-06-17] MEDS ORDERED: APIXABAN PO SCH (10:00)
[2019-06-17] MEDS ORDERED: ZOCOR 20MG PO SCH ×2 (10:00→22:00)
[2019-06-17] MEDS: MORPHINE SULFATE 2 MG INJ IV PRN ×2 (10:37→18:17)
[2019-06-17] MEDS ORDERED: NICODERM CQ 14 MG TOP SCH (11:00)
[2019-06-17 11:26] LABS: Risk Ratio 3.3
[2019-06-17] MEDS ORDERED: NON-FORMULARY ITEM (Atorvastatin Calcium [Lipitor] 40 MG) PO SCH (22:00)
[2019-06-17] MEDS ORDERED: ULTRAM 50 MG PO PRN (22:35)
[2019-06-18] MEDS: NITRO-BID 2% UD PACKETS TOP SCH (02:30)
[2019-06-18] MEDS ORDERED: ULTRAM 50 MG PO PRN (07:02)
[2019-06-18 07:34] VITALS: BP 109/68; PULSE 59; O2SAT 95
[2019-06-18] MEDS: XANAX 1 MG PO SCH (08:40)
[2019-06-18] MEDS: Ecotrin 325 MG PO SCH (08:40)
[2019-06-18] MEDS: ELIQUIS 2.5 MG TABLET PO SCH (08:41)
--- NOTE | 2019-06-18 10:23 | SSS ---
DISCHARGE DIAGNOSES: 1) CHEST PAIN. 2) HISTORY OF PERIPHERAL VASCULAR DISEASE. 3) TRANSIENT ISCHEMIC ATTACK. HISTORY: The patient is a 59 year-old white male patient who presented to the emergency room with complaints of chest pain. He reported it was a 10 out of 10 and substernal in location. The patient was scheduled for aortofemoral bypass surgery in the next couple of weeks. He does see Dr. Hernandez as his medical office receptionist. HOME MEDICATIONS: Eliquis, atorvastatin. ALLERGIES: NKDA. PHYSICAL EXAMINATION: The patient on admission his vital signs were noted to be pulse 66, respiratory rate 19 and blood pressure 160/100. O2 saturation 98%. HEENT: Normocephalic, atraumatic. Pupils equal round reactive to light. Extraocular movements intact. Oropharynx is pink and moist. NECK: Supple without lymphadenopathy, thyromegaly or JVD. CHEST: Clear to auscultation. HEART: Regular rate and rhythm without murmurs, rubs or gallops. ABDOMEN: Soft. No palpable masses. EXTREMITIES: Without cyanosis, clubbing or edema. NEUROLOGIC: The patient is alert and oriented x3. LAB DATA AND TESTS: All of his troponins were less than 0.012. His lipid panel showed total cholesterol 138, HDL 42 and LDL 74. CBC was normal with white count 5.4, hemoglobin 14.0, PLT count 171,000. Urine drug screen was positive for benzodiazepines, opiates, THC. The international normalized ratio 1.10. Metabolic panel showed sugar 119, BUN 25, creatinine 0.75. Liver enzymes were normal. ProBNP was normal. EKG showed sinus rhythm with no acute ST-T wave changes noted. HOSPITAL COURSE: The patient was admitted to the hospital and serial troponins were all negative. He was given Nitro paste but complained that it caused burning on his skin and this was discontinued. He has been chest pain free over the past several hours. Having ruled out for myocardial infarction I did discuss the case with Dr. Hernandez, the patient's medical office receptionist, who wishes to see him tomorrow morning at 0900 hours in his office. The patient will need cardiac evaluation before he can proceed with the aortofemoral bypass.
== END 2019-06-18 09:18 | disposition home or self-care (01) ==
LOC: ED 01:15 → MED SURG 04:33
PROVIDERS: ADMIT Family Medicine; ATTEND Family Medicine
DX: R07.9 Chest pain, unspecified (principal); I73.9 Peripheral vascular disease, unspecified; Z86.73 Personal history of transient ischemic attack (TIA), and cerebral infarction without residual deficits; Z79.01 Long term (current) use of anticoagulants; Z79.899 Other long term (current) drug therapy
CPT/HCPCS: 36000; 36415; 71045; 80053; 80061; 80307; 82550; 83690; 83721; 83735; 83880; 84484; 85025; 85610; 85730; 93005; 93041; 93268; 94760; 96374; 96375; 99285; G0378; J2270; J2405; A9270-GY